=== PATIENT | female | born 1965 ===

== ENCOUNTER 2018-05-09 12:03 | Emergency (ER) | payer BC ==
[2018-05-09 12:09] VITALS: BMI 18.3
[2018-05-09 12:14] VITALS: BP 113/72; PULSE 80; RESP 18; TEMP 98.7; O2SAT 100
[2018-05-09] MEDS ORDERED: Naproxen 550 mg Tab PO STA (13:00)
[2018-05-09] MEDS ORDERED: Naproxen 550 mg Tab PO ONE (13:15)
--- NOTE | 2018-05-09 13:41 | C.PDOC ---
History Of Present Illness 53 y/o female presents to the ER complaining of left knee pain which has been present for the past 2-3 weeks becoming gradually worse over the past 3 days. Patient states that the pain is worse with rocking. Patient denies having falls, trauma, weakness, and numbness. Time Seen by Provider: 05/09/18 12:29 Chief Complaint (Nursing): Lower Extremity Problem/Injury History Per: Patient History/Exam Limitations: no limitations Onset/Duration Of Symptoms: Days Current Symptoms Are (Timing): Still Present Severity: Moderate Past Medical History Reviewed: Historical Data, Nursing Documentation, Vital Signs Vital Signs: Last Vital Signs Temp 98.7 F 05/09/18 12:09 Pulse 80 05/09/18 12:09 Resp 18 05/09/18 12:09 BP 113/72 05/09/18 12:09 Pulse Ox 100 05/09/18 12:09 - Medical History PMH: Anemia, Seizures Other Surgeries: Hx of surgeries Family History: States: No Known Family Hx - Social History Hx Tobacco Use: No Hx Alcohol Use: No Hx Substance Use: No - Immunization History Hx Tetanus Toxoid Vaccination: No Hx Influenza Vaccination: No Hx Pneumococcal Vaccination: No Review Of Systems Except As Marked, All Systems Reviewed And Found Negative. Musculoskeletal: Positive for: Other (left knee pain) Neurological: Negative for: Weakness, Numbness Physical Exam - Physical Exam Appears: Non-toxic, No Acute Distress Skin: Normal Color, Warm, Dry, No Rash Head: Atraumatic, Normacephalic Eye(s): bilateral: Normal Inspection Nose: Normal Oral Mucosa: Moist Neck: Normal ROM, Supple Chest: Symmetrical Extremity: Normal ROM, No Tenderness, Swelling (mild swelling to anterior medial aspect of left knee) Neurological/Psych: Oriented x3, Normal Speech Gait: Steady ED Course And Treatment O2 Sat by Pulse Oximetry: 100 (RA) Pulse Ox Interpretation: Normal Medical Decision Making Medical Decision Making: Plan: --Naproxen PO --X-Ray-Left Knee Updates: X-Ray-Left Knee is negative for fracture or dislocation. Disposition - Disposition Referrals: Nicky Mortensen MD [Staff Provider] - Disposition: HOME/ ROUTINE Disposition Time: 14:11 Condition: STABLE Additional Instructions: Follow up with the medical doctor within 1-2 days, Return if worsened. 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 - Scribe Statement The provider has reviewed the documentation as recorded by the Scribe Bryant Nova Provider Attestation All medical record entries made by the Georgeibe were at my direction and personally dictated by me. I have reviewed the chart and agree that the record accurately reflects my personal performance of the history, physical exam, medical decision making, and the department course for this patient. I have also personally directed, reviewed, and agree with the discharge instructions and disposition.
--- NOTE | 2018-05-09 13:43 | RAD ---
Date of service: 05/09/2018 PROCEDURE: Left Knee Radiographs. HISTORY: Pain. No history of recent/ related trauma provided. Swelling. COMPARISON: None. FINDINGS: BONES: Normal. No fracture. JOINTS: Normal. No osteoarthritis. JOINT EFFUSION: None. OTHER FINDINGS: None. IMPRESSION: Normal radiographs of the left knee. Concordant results with the preliminary interpretation rendered by the emergency department physician procedure.
== END 2018-05-09 14:32 | disposition home or self-care (01) ==
LOC: C.ER 12:03
DX: M25.562 Pain in left knee (principal)

== ENCOUNTER 2018-08-25 12:10 | Outpatient (CLI) | payer BC | END 2018-08-25 12:11 | disposition home or self-care (01) | LOC: C.RADIC 12:10 ==

== ENCOUNTER 2018-12-09 12:17 | Inpatient (IN) | payer BC ==
[2018-12-09 12:18] VITALS: BMI 18.3
--- NOTE | 2018-12-09 13:02 | C.PDOC ---
History Of Present Illness 53 year old female with a history of seizures presents to the emergency department with complaints of right-sided scapula pain worse with inspiration. Patient states that she was drinking milk this morning and coughed, after which she began having the pain with breathing. Patient states that she took Advil for the pain which provided no relief. Patient denies history of asthma, HTN, and diabetes. <Shnaae Duval - Last Filed: 12/09/18 15:26> <Santos Rod - Last Filed: 12/09/18 15:13> History Per: Patient History/Exam Limitations: no limitations Onset/Duration Of Symptoms: Hrs Current Symptoms Are (Timing): Still Present Quality Of Discomfort: "Pain" Previous Symptoms: None Associated Symptoms: None Exacerbating Factor(s): Other (breathing) <Shanae Duval - Last Filed: 12/09/18 15:26> Chief Complaint (Nursing): Cough, Cold, Congestion Past Medical History Vital Signs: Last Vital Signs Temp 98.3 F 12/09/18 12:21 Pulse 72 12/09/18 14:50 Resp 16 12/09/18 14:50 BP 108/61 12/09/18 14:50 Pulse Ox 100 12/09/18 14:50 <Santos Rod - Last Filed: 12/09/18 15:13> Reviewed: Historical Data, Nursing Documentation, Vital Signs Vital Signs: Last Vital Signs Temp 98.3 F 12/09/18 12:21 Pulse 63 12/09/18 12:21 Resp 18 12/09/18 12:21 BP 128/76 12/09/18 12:21 Pulse Ox 100 12/09/18 12:21 Primary Care Provider: Rocael Easley - Medical History PMH: Anemia, Seizures Surgical History: No Surg Hx Family History: States: No Known Family Hx - Social History Hx Tobacco Use: No Hx Alcohol Use: No Hx Substance Use: No - Immunization History Hx Tetanus Toxoid Vaccination: No Hx Influenza Vaccination: No Hx Pneumococcal Vaccination: No <SiminEricamanda - Last Filed: 12/09/18 15:26> Review Of Systems Constitutional: Negative for: Fever, Chills, Weakness Cardiovascular: Negative for: Chest Pain Respiratory: Negative for: Cough, Shortness of Breath Musculoskeletal: Positive for: Back Pain (right-sided) Neurological: Negative for: Weakness, Numbness <Shanae Duval - Last Filed: 12/09/18 15:26> Physical Exam - Physical Exam Appears: Non-toxic, No Acute Distress Skin: Normal Color, Warm, Dry Head: Atraumatic, Normacephalic Eye(s): bilateral: Normal Inspection, PERRL Ear(s): Bilateral: Normal Nose: No Discharge Oral Mucosa: Moist Tongue: Normal Appearing Lips: Normal Appearing Throat: Normal, No Erythema, No Exudate Neck: Normal, Supple Chest: Symmetrical, No Tenderness Cardiovascular: Rhythm Regular, No Murmur Respiratory: No Rales, No Rhonchi, No Wheezing Gastrointestinal/Abdominal: Soft, No Tenderness, No Guarding, No Rebound Back: Normal Inspection, No CVA Tenderness, No Vertebral Tenderness, No Decreased ROM, No Muscle Spasm, No Paraspinal Tenderness Extremity: Normal ROM Extremity: Bilateral: Atraumatic Neurological/Psych: Oriented x3, Normal Speech, Normal Cognition, Normal Motor, Normal Sensation <Shanae Duval - Last Filed: 12/09/18 15:26> ED Course And Treatment - Laboratory Results Result Diagrams: 12/09/18 13:02 12/09/18 13:02 Lab Results: PT 13.1 SECONDS (9.7-12.2) H 12/09/18 13:02 INR 1.2 12/09/18 13:02 APTT 35.3 SECONDS (21-34) H 12/09/18 13:02 D-Dimer, Quantitative < 200 ng/mlDDU (0-243) 12/09/18 13:02 Troponin I < 0.0120 ng/mL (0.00-0.120) 12/09/18 13:02 NT-Pro-B Natriuret Pep 131 pg/mL (0-900) 12/09/18 13:02 Total Bilirubin 0.5 mg/dL (0.2-1.3) 12/09/18 13:02 AST 40 U/L (14-36) H 12/09/18 13:02 ALT 23 U/L (9-52) 12/09/18 13:02 Alkaline Phosphatase 73 U/L (38-126) 12/09/18 13:02 Total Protein 7.7 g/dL (6.3-8.3) 12/09/18 13:02 Albumin 4.6 g/dL (3.5-5.0) 12/09/18 13:02 Globulin 3.1 gm/dL (2.2-3.9) 12/09/18 13:02 Albumin/Globulin Ratio 1.5 (1.0-2.1) 12/09/18 13:02 <Santos Rod - Last Filed: 12/09/18 15:13> - Laboratory Results Result Diagrams: 12/09/18 13:02 12/09/18 13:02 ECG: Interpreted By Me ECG Rhythm: Sinus Rhythm ECG Interpretation: No Acute Changes Rate From EC O2 Sat by Pulse Oximetry: 100 (RA) Pulse Ox Interpretation: Normal - Other Rad CXR X-Ray: Viewed By Me, Read By Radiologist Interpretation: Date of service: 12/09/2018. HISTORY: SOB. COMPARISON: Chest x-ray 11/15/2015. TECHNIQUE: Chest PA and lateral. FINDINGS: LUNGS: No focal consolidation is seen. PLEURA: No pleural effusion is identified. Small to moderate size right pneumothorax. CARDIOVASCULAR: Heart size is within normal limits. Atherosclerotic calcifications noted of the aorta. OSSEOUS STRUCTURES: No acute fracture identified. VISUALIZED UPPER ABDOMEN: Unremarkable. OTHER FINDINGS: Battery pack the overlying the left lateral jhonny thorax and metallic lead seen extending towards the left lung apex.. IMPRESSION: Small to moderate size right pneumothorax. Findings discussed with Shanae Duval, ordering clinician, of the emergency department at 1:18 p.m. on 12/09/2018. <Shanae Duval - Last Filed: 12/09/18 15:26> Medical Decision Making Medical Decision Making: Patient signed over to me at 2pm, complained of SOB. CXR done in FT by PA, showed small right sided pneumothorax Discussed with surgery, pending further evaluation. PE: Thin frail [place] female, lungs clear to auscultation bilaterally. <Santos Rod - Last Filed: 12/09/18 15:13> Medical Decision Making: Plan: EKG -no acute changes Chemistry Hematology CXR Patient verbalizes understanding and is in agreement with plan. Patient started on 15L non-rebreather oxygen. technical operations vice president paged at 13:29. 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 - Scribe Statement The provider has reviewed the documentation as recorded by the Scribe (Laureano Lynch) All medical record entries made by the Scribe were at my direction and personally dictated by me. I have reviewed the chart and agree that the record accurately reflects my personal performance of the history, physical exam, medical decision making, and the department course for this patient. I have also personally directed, reviewed, and agree with the discharge instructions and disposition. <Shanae Duval - Last Filed: 12/09/18 15:26> Decision To Admit - Pt Status Changed To: Hospital Disposition Of: Inpatient - Admit Certification Admit to Inpatient:: After my assessment, the patient will require hospitalization for at least two midnights. This is because of the severity of symptoms shown, intensity of services needed, and/or the medical risk in this patient being treated as an outpatient. - InPatient: Physician Admission Certification:: right sided pneumothorax for possible chest tube or pigtail - . Bed Request Type: Telemetry <Shanae Duval - Last Filed: 12/09/18 15:26> - . Patient Diagnosis: SOB (shortness of breath), Pneumothorax on right
[2018-12-09 13:06] LABS: MEAN CORPUSCULAR HEMOGLOBIN 19.9 pg (27.0-31.0); MEAN CORPUSCULAR HGB CONC 32.3 g/dL (33.0-37.0); MEAN PLATELET VOLUME 9.3 fL (7.2-11.7); RBC 5.56 Mil/uL (3.80-5.20); RED CELL DISTRIBUTION WIDTH 17.3 % (11.5-14.5); WHITE BLOOD COUNT 7.4 K/uL (4.8-10.8)
[2018-12-09 13:14] LABS: MEAN CELL VOLUME 61.6 fL (81.0-99.0)
[2018-12-09 13:22] LABS: ALB/GLOB RATIO 1.5 (1.0-2.1); ALBUMIN 4.6 g/dL (3.5-5.0); ALT/SGPT 23 U/L (9-52); AST/SGOT 40 U/L (14-36); BLOOD UREA NITROGEN 9 mg/dL (7-17); CALCIUM 9.4 mg/dl (8.6-10.4); GFR NON-AFRICAN AMERICAN > 60
--- NOTE | 2018-12-09 13:22 | RAD ---
Date of service: 12/09/2018 HISTORY: SOB COMPARISON: Chest x-ray 11/15/2015 TECHNIQUE: Chest PA and lateral FINDINGS: LUNGS: No focal consolidation is seen. PLEURA: No pleural effusion is identified. Small to moderate size right pneumothorax. CARDIOVASCULAR: Heart size is within normal limits. Atherosclerotic calcifications noted of the aorta. OSSEOUS STRUCTURES: No acute fracture identified. VISUALIZED UPPER ABDOMEN: Unremarkable. OTHER FINDINGS: Battery pack the overlying the left lateral jhonny thorax and metallic lead seen extending towards the left lung apex.. IMPRESSION: Small to moderate size right pneumothorax. Findings discussed with Shanae Duval, ordering clinician, of the emergency department at 1:18 p.m. on 12/09/2018.
[2018-12-09 13:32] LABS: B-TYPE NATRIURETIC PEPTIDE 131 pg/mL (0-900)
[2018-12-09 13:34] LABS: D DIMER < 200 ng/mlDDU (0-243); INR 1.2; PARTIAL THROMBOPLASTIN TIME 35.3 SECONDS (21-34); PROTHROMBIN TIME 13.1 SECONDS (9.7-12.2)
[2018-12-09 13:46] LABS: BASO # 0.1 K/uL (0.0-0.2); EOS # 0.1 K/uL (0.0-0.7); LYMPH # 1.6 K/uL (1.0-4.3); MONO # 0.4 K/uL (0.0-0.8); NEUT # 5.3 K/uL (1.8-7.0)
--- NOTE | 2018-12-09 14:32 | CP.PCM.CON ---
<Geoff Carter - Last Filed: 12/09/18 16:20> History of Present Illness - History of Present Illness History of Present Illness: Surgery Consult Note for Dr. Shi Consult: Pneumothorax HPI: 53 year old female, past medical history significant for seizures s/p VNS and rheumatoid arthritis, who presents to [facility] with right back/shoulder pain that began this morning. Patient states she woke up today with a bout of coughing and began to feel pain in her back/shoulder. Her brought her to the emergency department where x-ray imaging confirmed the presence of a small to moderate sized pneumothorax, approx 22%. Patient denies difficulty breathing or shortness of breath. Denies palpitations, dizziness. ROS otherwise negative except as stated above. PMH: See above PSH: VNS placement FH: Noncontributory SH: Denies tobacco, alcohol, drugs ALL: NKDA Meds: See MAR Review of Systems - Constitutional Constitutional: absent: Chills, Fever, Weight Loss, Weakness - EENT Eyes: absent: Blurred Vision, Change in Vision Nose/Mouth/Throat: absent: Nasal Congestion, Nasal Discharge - Cardiovascular Cardiovascular: absent: Chest Pain, Dyspnea, Dyspnea on Exertion, Palpitations - Respiratory Respiratory: Cough. absent: Dyspnea, Dyspnea on Exertion, Wheezing, Pain on Ins piration, Chest Congestion, Pain with Coughing - Gastrointestinal Gastrointestinal: absent: Abdominal Pain, Belching, Bloating, Nausea, Vomiting - Genitourinary Genitourinary: absent: Difficulty Urinating, Dysuria - Musculoskeletal Musculoskeletal: absent: Back Pain, Neck Pain - Integumentary Integumentary: absent: Dry Skin, New Lesions - Neurological Neurological: absent: Confusion, Dizziness - Psychiatric Psychiatric: absent: Anxiety, Depression Past Patient History - Past Social History Smoking Status: Never Smoked - NEUROLOGICAL Hx Seizures: Yes - HEMATOLOGICAL/ONCOLOGICAL Hx Anemia: Yes - PSYCHIATRIC Hx Substance Use: No - SURGICAL HISTORY Hx Surgeries: Yes Other/Comment: VNS Meds Allergies/Adverse Reactions: Allergies Allergy/AdvReac Type Severity Reaction Status Date / Time No Known Allergies Allergy Verified 05/09/18 12:20 Physical Exam - Constitutional Appears: Well, Non-toxic, No Acute Distress - Head Exam Head Exam: ATRAUMATIC, NORMAL INSPECTION, NORMOCEPHALIC - Eye Exam Eye Exam: EOMI Pupil Exam: PERRL - ENT Exam ENT Exam: Mucous Membranes Moist - Respiratory Exam Respiratory Exam: absent: Accessory Muscle Use, Chest Wall Tenderness, Wheezes, Respiratory Distress - Cardiovascular Exam Cardiovascular Exam: REGULAR RHYTHM. absent: Tachycardia - GI/Abdominal Exam GI & Abdominal Exam: Normal Bowel Sounds, Soft. absent: Tenderness - Extremities Exam Extremities exam: Positive for: normal inspection, pedal pulses present - Neurological Exam Neurological exam: Alert, Oriented x3 - Psychiatric Exam Psychiatric exam: Normal Affect, Normal Mood - Skin Skin Exam: Dry, Intact, Normal Color, Warm Results - Vital Signs Recent Vital Signs: Last Vital Signs Temp 98.3 F 12/09/18 12:21 Pulse 77 12/09/18 14:00 Resp 14 12/09/18 14:00 BP 116/78 12/09/18 14:00 Pulse Ox 100 12/09/18 14:20 - Labs Result Diagrams: 12/09/18 13:02 12/09/18 13:02 Labs: Laboratory Results - last 24 hr 12/09/18 12/09/18 12/09/18 13:02 13:02 13:02 WBC 7.4 RBC 5.56 H Hgb 11.0 Hct 34.2 MCV 61.6 L D MCH 19.9 L MCHC 32.3 L RDW 17.3 H Plt Count 275 MPV 9.3 Neut % (Auto) 72.0 Lymph % (Auto) 21.0 [place] % (Auto) 5.0 Eos % (Auto) 1.0 Baso % (Auto) 1.0 Neut # (Auto) 5.3 Lymph # (Auto) 1.6 [place] # (Auto) 0.4 Eos # (Auto) 0.1 Baso # (Auto) 0.1 PT 13.1 H INR 1.2 APTT 35.3 H D-Dimer, Quantitative < 200 Sodium 138 Potassium 4.1 Chloride 101 Carbon Dioxide 27 Anion Gap 14 BUN 9 Creatinine 0.6 L Est GFR ( Amer) > 60 Est GFR (Non-Af Amer) > 60 Random Glucose 84 Calcium 9.4 Total Bilirubin 0.5 AST 40 H ALT 23 Alkaline Phosphatase 73 Troponin I < 0.0120 NT-Pro-B Natriuret Pep 131 Total Protein 7.7 Albumin 4.6 Globulin 3.1 Albumin/Globulin Ratio 1.5 Assessment & Plan - Assessment and Plan (Free Text) Assessment: 53F w/ small/moderate pneumothorax Plan: Measuring approximately 22% FU CT Chest w/ contrast Patient may need pigtail catheter vs chest tube Continue to monitor respiratory status Remain on NC Currently hemodynamically stable Will continue to monitor Further recs per Dr. Yuridia Carter PGY1 <Juan Carlos Shi - Last Filed: 12/13/18 12:52> Meds - Medications Medications: Current Medications Acetaminophen (Tylenol 325mg Tab) 650 mg PO Q6H PRN PRN Reason: Pain, Mild (1-3) Albuterol/Ipratropium (Duoneb 3 Mg/0.5 Mg (3 Ml) Ud) 3 ml INH RQ6 [facility] Last Admin: 12/13/18 08:16 Dose: Not Given Cyclobenzaprine HCl (Flexeril) 5 mg PO Q8H [facility] Last Admin: 12/13/18 10:50 Dose: 5 mg Hydromorphone HCl (Dilaudid) 0.5 mg IVP Q3H PRN PRN Reason: Pain, severe (8-10) Last Admin: 12/11/18 01:04 Dose: 0.5 mg Lactulose (Enulose) 20 gm PO BID [facility] Last Admin: 12/13/18 10:50 Dose: 20 gm Lamotrigine (Lamictal) 150 mg PO BID [facility] Last Admin: 12/13/18 10:52 Dose: 150 mg Oxcarbazepine (Trileptal) 300 mg PO BID [facility] Last Admin: 12/13/18 10:58 Dose: 300 mg Oxycodone HCl (Oxycodone Immediate Release Tab) 5 mg PO Q6 PRN PRN Reason: Pain, moderate (4-7) Last Admin: 12/12/18 18:19 Dose: 5 mg Results - Vital Signs Recent Vital Signs: Last Vital Signs Temp 98.0 F 12/13/18 07:05 Pulse 85 12/13/18 07:35 Resp 20 12/13/18 07:05 BP 110/69 12/13/18 07:05 Pulse Ox 94 L 12/13/18 07:05 - Labs Result Diagrams: 12/09/18 13:02 12/09/18 13:02 Labs: Laboratory Results - last 24 hr 12/13/18 11:18 POC Glucose (mg/dL) 112 H Addendum Addendum: 12/13/18 12:46 The pt is 53 yo female with hx rheumatoid disesase who presented to ER with a sudden ondet of right sided chest pain after severe coughs. I have reviewed labs and chest xary, and discussed treatment plan with Dr. Geoff Kelly as outined in the progress note. A further intention will be predicarted on ct findings.
[2018-12-09] MEDS ORDERED: Iodixanol 320 MG/ML 100 ML BOTTLE IV ONE (16:48)
[2018-12-09] MEDS ORDERED: Bupivacaine 0.5% Inj(30mL) INJ ONE (18:30)
--- NOTE | 2018-12-09 18:48 | CT ---
Date of service: 12/09/2018 PROCEDURE: CT Chest with contrast HISTORY: PTX COMPARISON: Comparison is made with the previous same-day chest x-ray. No prior CT of the chest available for comparison TECHNIQUE: Contiguous axial images were obtained through the chest with intravenous contrast enhancement. Sagittal and coronal reconstructions were performed. IV contrast: 100 mL of Visipaque 320 intravenously. Radiation dose: Total exam DLP = 181.07 mGy-cm. This CT exam was performed using one or more of the following dose reduction techniques: Automated exposure control, adjustment of the mA and/or kV according to patient size, and/or use of iterative reconstruction technique. FINDINGS: LUNGS: Partial collapse of the right lung lower lobe due to right-sided pneumothorax. There is also partial collapse of the right middle lobe. Moderate emphysematous changes are noted. No definite evidence of discrete mass lesion. MEDIASTINUM: Unremarkable thoracic aorta. No aneurysm or dissection. Normal sized heart. Main pulmonary artery unremarkable. No vascular congestion. No lymphadenopathy. No aortic atherosclerotic calcification or mural plaque present. PLEURA: There is approximately 30-35 percent right-sided pneumothorax. There is no evidence of pleural effusion. BONES: No fracture. No destructive lesion. UPPER ABDOMEN: Grossly unremarkable. OTHER FINDINGS: None. IMPRESSION: Moderate size approximately 30-40 percent right-sided pneumothorax. Partial collapse of the right lower lobe and right middle lobe. [id number] emphysematous changes. The above findings were reported to and discussed with the nurse taking care of the patient in the [facility] [address] [facility]
--- NOTE | 2018-12-09 19:26 | CP.PCM.HP ---
Past Patient History - Past Social History Smoking Status: Never Smoked - NEUROLOGICAL Hx Seizures: Yes - HEMATOLOGICAL/ONCOLOGICAL Hx Anemia: Yes - PSYCHIATRIC Hx Substance Use: No - SURGICAL HISTORY Hx Surgeries: Yes Other/Comment: VNS - ANESTHESIA Hx Anesthesia: No Hx Anesthesia Reactions: No Hx Malignant Hyperthermia: No Has any member of the family had a problem w/ anesthesia?: No Meds Allergies/Adverse Reactions: Allergies Allergy/AdvReac Type Severity Reaction Status Date / Time No Known Allergies Allergy Verified 05/09/18 12:20 Physical Exam - Constitutional Appears: Well - Head Exam Head Exam: ATRAUMATIC, NORMAL INSPECTION, NORMOCEPHALIC - Eye Exam Eye Exam: EOMI, Normal appearance, PERRL Pupil Exam: NORMAL ACCOMODATION, PERRL - ENT Exam ENT Exam: Mucous Membranes Moist, Normal Exam - Neck Exam Neck exam: Positive for: Normal Inspection - Respiratory Exam Respiratory Exam: Decreased Breath Sounds - Cardiovascular Exam Cardiovascular Exam: REGULAR RHYTHM, +S1, +S2 - GI/Abdominal Exam GI & Abdominal Exam: Diminished Bowel Sounds, Soft - Rectal Exam Rectal Exam: Deferred - Neurological Exam Neurological exam: Oriented x3 Results - Vital Signs Recent Vital Signs: Last Vital Signs Temp 97.4 F L 12/09/18 17:30 Pulse 67 12/09/18 17:30 Resp 18 12/09/18 17:30 BP 132/75 12/09/18 17:30 Pulse Ox 97 12/09/18 17:30 - Labs Result Diagrams: 12/09/18 13:02 12/09/18 13:02 Labs: Laboratory Results - last 24 hr 12/09/18 12/09/18 12/09/18 13:02 13:02 13:02 WBC 7.4 RBC 5.56 H Hgb 11.0 Hct 34.2 MCV 61.6 L D MCH 19.9 L MCHC 32.3 L RDW 17.3 H Plt Count 275 MPV 9.3 Neut % (Auto) 72.0 Lymph % (Auto) 21.0 [place] % (Auto) 5.0 Eos % (Auto) 1.0 Baso % (Auto) 1.0 Neut # (Auto) 5.3 Lymph # (Auto) 1.6 [place] # (Auto) 0.4 Eos # (Auto) 0.1 Baso # (Auto) 0.1 PT 13.1 H INR 1.2 APTT 35.3 H D-Dimer, Quantitative < 200 Sodium 138 Potassium 4.1 Chloride 101 Carbon Dioxide 27 Anion Gap 14 BUN 9 Creatinine 0.6 L Est GFR ( Amer) > 60 Est GFR (Non-Af Amer) > 60 Random Glucose 84 Calcium 9.4 Total Bilirubin 0.5 AST 40 H ALT 23 Alkaline Phosphatase 73 Troponin I < 0.0120 NT-Pro-B Natriuret Pep 131 Total Protein 7.7 Albumin 4.6 Globulin 3.1 Albumin/Globulin Ratio 1.5
[2018-12-09] MEDS: HYDROmorphone 0.5 mg/0.5 ml ISec IVP PRN (19:55)
[2018-12-09] MEDS ORDERED: HYDROmorphone 0.5 mg/0.5 ml ISec ONE (19:58)
[2018-12-09] MEDS: Azithromycin 500mg/250ML NS 500 MG/250 ML BAG IVPB SCH (21:45)
--- NOTE | 2018-12-09 23:41 | PCM.PROC ---
<Geoff Carter - Last Filed: 12/09/18 23:37> Procedures Attestation:: I certify that I have explained the specified Operation(s) or Procedure(s), risks, benefits and reasonable alternatives to the Patient and/or other person responsible. The opportunity was given to ask questions and all questions answered - Chest Tube Chest Tube Location: Mid-Axillary Right Size of Tube (cm): 24 (Fr) Chest Tube Procedure: Chlorhexidine Tube Sutured to Skin: Yes Sterile Dressing Applied: Yes Anesthesia: Lidocaine 1% Volume Anesthetic (mls): 10 Incision Made With: #11 blade Post Procedure: sutured to skin, sterile dressing applied, air occlusive dressing [place] of Air [place]: Yes Tube Drainage: blood Amount of Initial Drainage: 5 Post Procedure CXR?: Yes Patient Tolerated Procedure: Yes Complications: tube needs to be repositioned Progress: 53 year old female presented to the ED with right back/shoulder pain. Xray showed right sided pneumothorax. Chest CT was ordered which confirmed pneumothorax of approximately 30-40%. Tube thoracostomy indicated at this time. Patient consented to procedure with nurse as witness. All questions and concerns addressed. Time out was performed. Chest tube was placed at beside. Patient tolerated procedure. Post-procedure xray showed tube too far advanced which was then adjusted. Repeat chest xray showed chest tube in appropriate position. Patient verbalized and acknowledged treatment plan. All aspects of care rendered to attending, Dr. Shi, who was in agreement of procedure. <Juan Carlos Shi - Last Filed: 12/13/18 12:55> Addendum Addendum: 12/13/18 12:53 I concur with a tube thoracostomy based on ct findings(40% Pneumothorax right)
[2018-12-10] MEDS: Albuterol-Ipratrop 3 mg / 0.5 (3 ml) UD INH SCH ×4 (01:20→19:22)
[2018-12-10] MEDS: HYDROmorphone 0.5 mg/0.5 ml ISec IVP PRN ×3 (06:11→17:51)
--- NOTE | 2018-12-10 08:01 | CP.PCM.PN ---
<EmmaGeoff - Last Filed: 12/10/18 07:58> Subjective - Date & Time of Evaluation Date of Evaluation: 12/10/18 Time of Evaluation: 07:58 - Subjective Subjective: Surgery Progress Note for Dr. Shi 53F seen and evaluated at bedside this morning. No acute events overnight. Chest tube in place, no output, no air leak. Pending CT Chest this morning. Pain controlled. Tolerated diet. Denies f/c, n/v/d, SOB, CP, or urinary symptoms. Objective - Vital Signs/Intake and Output Vital Signs (last 24 hours): Temp Pulse Resp BP Pulse Ox 97.9 F 71 18 100/58 L 100 12/10/18 07:00 12/10/18 07:00 12/10/18 07:00 12/10/18 07:00 12/10/18 07:00 - Medications Medications: Current Medications Acetaminophen (Tylenol 325mg Tab) 650 mg PO Q6H [facility] Last Admin: 12/09/18 21:46 Dose: 650 mg Albuterol/Ipratropium (Duoneb 3 Mg/0.5 Mg (3 Ml) Ud) 3 ml INH RQ6 [facility] Last Admin: 12/10/18 01:20 Dose: 3 ml Cyclobenzaprine HCl (Flexeril) 5 mg PO Q8H [facility] Last Admin: 12/10/18 04:10 Dose: 5 mg Hydromorphone HCl (Dilaudid) 0.5 mg IVP Q3H PRN PRN Reason: Pain, severe (8-10) Last Admin: 12/10/18 06:11 Dose: 0.5 mg Azithromycin (Zithromax 500mg In Ns Addvantage) 500 mg in 250 mls @ 167 mls/hr IVPB Q24H [facility]; Protocol Last Admin: 12/09/18 21:45 Dose: 167 mls/hr Lamotrigine (Lamictal) 150 mg PO BID [facility] Last Admin: 12/09/18 21:46 Dose: 150 mg Oxcarbazepine (Trileptal) 300 mg PO BID [facility] Last Admin: 12/09/18 20:29 Dose: 300 mg Oxycodone HCl (Oxycodone Immediate Release Tab) 5 mg PO Q6 PRN PRN Reason: Pain, moderate (4-7) - Labs Labs: 12/09/18 13:02 12/09/18 13:02 PT 13.1 SECONDS (9.7-12.2) H 12/09/18 13:02 INR 1.2 12/09/18 13:02 APTT 35.3 SECONDS (21-34) H 12/09/18 13:02 - Constitutional Appears: Well, Non-toxic, No Acute Distress - Head Exam Head Exam: ATRAUMATIC, NORMAL INSPECTION, NORMOCEPHALIC - Eye Exam Eye Exam: EOMI Pupil Exam: PERRL - ENT Exam ENT Exam: Mucous Membranes Moist - Respiratory Exam Respiratory Exam: Chest Wall Tenderness, NORMAL BREATHING PATTERN. absent: Accessory Muscle Use, Decreased Breath Sounds, Wheezes, Respiratory Distress Additional comments: right anterior mid-axillary chest tube - no significant output, dressing c/d/i - Cardiovascular Exam Cardiovascular Exam: REGULAR RHYTHM, +S1, +S2. absent: Murmur - GI/Abdominal Exam GI & Abdominal Exam: Soft, Normal Bowel Sounds. absent: Tenderness - Neurological Exam Neurological Exam: Alert, Awake, Oriented x3 - Psychiatric Exam Psychiatric exam: Normal Affect, Normal Mood - Skin Skin Exam: Dry, Intact, Normal Color, Warm Assessment and Plan - Assessment and Plan (Free Text) Assessment: 53F w/ right sided pneumothorax s/p tube thoracostomy at bedside with near resolution of PTX Plan: Pending CT Chest this morning Continue CT wall suction - 100mmHg, continuous Monitor chest tube output Monitor for air leaks Pain control PRN Regular diet as tolerated Monitor respiratory status Further recs per Dr. Yuridia Carter PGY1 <Juan Carlos Shi - Last Filed: 12/13/18 13:00> Objective - Vital Signs/Intake and Output Vital Signs (last 24 hours): Temp Pulse Resp BP Pulse Ox 98.0 F 85 20 110/69 94 L 12/13/18 07:05 12/13/18 07:35 12/13/18 07:05 12/13/18 07:05 12/13/18 07:05 Intake and Output: 12/13/18 12/13/18 06:59 18:59 Intake Total 240 Output Total 0 Balance 240 - Medications Medications: Current Medications Acetaminophen (Tylenol 325mg Tab) 650 mg PO Q6H PRN PRN Reason: Pain, Mild (1-3) Albuterol/Ipratropium (Duoneb 3 Mg/0.5 Mg (3 Ml) Ud) 3 ml INH RQ6 [facility]S [facility] BEDS AT [facility] Last Admin: 12/13/18 08:16 Dose: Not Given Cyclobenzaprine HCl (Flexeril) 5 mg PO Q8H COUNTS INCLUDE 234 BEDS AT THE [facility] Last Admin: 12/13/18 10:50 Dose: 5 mg Hydromorphone HCl (Dilaudid) 0.5 mg IVP Q3H PRN PRN Reason: Pain, severe (8-10) Last Admin: 12/11/18 01:04 Dose: 0.5 mg Lactulose (Enulose) 20 gm PO BID COUNTS [facility]CLUDE 234 BEDS AT [facility] Last Admin: 12/13/18 10:50 Dose: 20 gm Lamotrigine (Lamictal) 150 mg PO BID COUNTS [facility]CLUDE 234 BEDS AT [facility] Last Admin: 12/13/18 10:52 Dose: 150 mg Oxcarbazepine (Trileptal) 300 mg PO BID [facility] 234 BEDS AT [facility] Last Admin: 12/13/18 10:58 Dose: 300 mg Oxycodone HCl (Oxycodone Immediate Release Tab) 5 mg PO Q6 PRN PRN Reason: Pain, moderate (4-7) Last Admin: 12/12/18 18:19 Dose: 5 mg - Labs Labs: 12/09/18 13:02 12/09/18 13:02 PT 13.1 SECONDS (9.7-12.2) H 12/09/18 13:02 INR 1.2 12/09/18 13:02 APTT 35.3 SECONDS (21-34) H 12/09/18 13:02 Addendum Addendum: 12/13/18 12:59 ct this am shows=5% basilar pneumothrax. Contineu chest tube to suction.
--- NOTE | 2018-12-10 14:27 | CT ---
Date of service: 12/10/2018 PROCEDURE: CT Chest without contrast HISTORY: PTX COMPARISON: Comparison is made to the previous study dated 12/09/2018 TECHNIQUE: Contiguous axial images were obtained through the chest without intravenous contrast enhancement. Sagittal and coronal reconstructions were performed. Radiation dose: Total exam DLP = 155.37 mGy-cm. This CT exam was performed using one or more of the following dose reduction techniques: Automated exposure control, adjustment of the mA and/or kV according to patient size, and/or use of iterative reconstruction technique. FINDINGS: LUNGS: Interval insertion of right-sided chest tube and almost complete resolving of the previously seen right pneumothorax. There re-expansion of the right middle lobe and right lower lobe. There is persistent focal consolidation at the right middle lobe associated with bronchiectasis suggestive of right middle lobe syndrome. Emphysematous changes of the lungs is again noted. Partial atelectasis of the right lower lobe is noted. The small opacities at the left lung base with also likely represent atelectasis. MEDIASTINUM: Unremarkable thoracic aorta. No aneurysm. Normal sized heart. The main pulmonary artery is mildly enlarged. No evidence of significant interval change in the mediastinum. Dilated esophagus contains fluid and air-fluid level is noted. Small atherosclerotic calcification noted. PLEURA: Small approximately 5 percent pneumothorax noted in the right lower chest. There is trace/small right pleural effusion and trace left pleural effusion. BONES: No fracture. No destructive lesion. UPPER ABDOMEN: Grossly unremarkable. OTHER FINDINGS: None. IMPRESSION: Interval insertion of right sided chest tube. Residual 5 percent right-sided pneumothorax is noted. Small airspace consolidation at the right middle lobe associated with bronchiectasis suggestive of right middle lobe syndrome secondary to airway stenosis. Mild emphysema. Small right pleural effusion and trace left pleural effusion. Dilated esophagus contains fluid.
--- NOTE | 2018-12-10 15:10 | CP.PCM.CON ---
History of Present Illness - History of Present Illness History of Present Illness: 53 year old female, past medical history significant for seizures s/p VNS and rheumatoid arthritis, who presents to [facility] with right back/shoulder pain that began this morning. Patient states she woke up today with a bout of coughing and began to feel pain in her back/shoulder. Her brought her to the emergency department where x-ray imaging confirmed the presence of a small to moderate sized pneumothorax, approx 22%. Patient denies difficulty breathing or shortness of breath. Denies palpitations, dizziness. ROS otherwise negative except as stated above. Review of Systems - Review of Systems All systems: reviewed and no additional remarkable complaints except (as mentioned in HPI) Past Patient History - Past Social History Smoking Status: Never Smoked - NEUROLOGICAL Hx Seizures: Yes - HEMATOLOGICAL/ONCOLOGICAL Hx Anemia: Yes - MUSCULOSKELETAL/RHEUMATOLOGICAL Hx Falls: No - PSYCHIATRIC Hx Substance Use: No - SURGICAL HISTORY Hx Surgeries: Yes Other/Comment: VNS - ANESTHESIA Hx Anesthesia: No Hx Anesthesia Reactions: No Hx Malignant Hyperthermia: No Has any member of the family had a problem w/ anesthesia?: No Meds Allergies/Adverse Reactions: Allergies Allergy/AdvReac Type Severity Reaction Status Date / Time No Known Allergies Allergy Verified 05/09/18 12:20 - Medications Medications: Current Medications Acetaminophen (Tylenol 325mg Tab) 650 mg PO Q6H PRN PRN Reason: Pain, Mild (1-3) Albuterol/Ipratropium (Duoneb 3 Mg/0.5 Mg (3 Ml) Ud) 3 ml INH RQ6 [facility] Last Admin: 12/10/18 14:18 Dose: 3 ml Cyclobenzaprine HCl (Flexeril) 5 mg PO Q8H JED Last Admin: 12/10/18 11:49 Dose: 5 mg Heparin Sodium (Porcine) (Heparin) 5,000 units SC Q12 [facility]ED Last Admin: 12/10/18 09:51 Dose: 5,000 units Hydromorphone HCl (Dilaudid) 0.5 mg IVP Q3H PRN PRN Reason: Pain, severe (8-10) Last Admin: 12/10/18 09:50 Dose: 0.5 mg Azithromycin (Zithromax 500mg In Ns Addvantage) 500 mg in 250 mls @ 167 mls/hr IVPB Q24H [facility]; Protocol Last Admin: 12/09/18 21:45 Dose: 167 mls/hr Lamotrigine (Lamictal) 150 mg PO BID [facility] Last Admin: 12/10/18 09:51 Dose: 150 mg Oxcarbazepine (Trileptal) 300 mg PO BID [facility] Last Admin: 12/10/18 09:51 Dose: 300 mg Oxycodone HCl (Oxycodone Immediate Release Tab) 5 mg PO Q6 PRN PRN Reason: Pain, moderate (4-7) Physical Exam - Head Exam Head Exam: NORMAL INSPECTION - Eye Exam Eye Exam: Normal appearance - ENT Exam ENT Exam: Mucous Membranes Moist - Respiratory Exam Respiratory Exam: Clear to Auscultation Bilateral - Cardiovascular Exam Cardiovascular Exam: REGULAR RHYTHM - GI/Abdominal Exam GI & Abdominal Exam: Normal Bowel Sounds - Extremities Exam Extremities exam: Positive for: normal inspection Results - Vital Signs Recent Vital Signs: Last Vital Signs Temp 97.9 F 12/10/18 07:00 Pulse 71 12/10/18 07:00 Resp 18 12/10/18 07:00 BP 100/58 L 12/10/18 07:00 Pulse Ox 100 12/10/18 07:00 - Labs Result Diagrams: 12/09/18 13:02 12/09/18 13:02 Assessment & Plan (1) Pneumothorax on right Status: Acute (2) SOB (shortness of breath) Status: Acute - Assessment and Plan (Free Text) Plan: repeat CT shows near complete resolution of PTx Chest tube in place Continue CT to suction Pain control Broncho dilators DVT/GI prophalaxis
[2018-12-10] MEDS: Azithromycin 500mg/250ML NS 500 MG/250 ML BAG IVPB SCH (17:48)
--- NOTE | 2018-12-10 18:42 | RAD ---
Date of service: 12/09/2018 HISTORY: s/p chest tube placement COMPARISON: 12/09/2018 TECHNIQUE: 1 view obtained. FINDINGS: LUNGS: Interval insertion of right-sided chest tube. Otherwise no significant interval change in the lungs PLEURA: Interval decrease in the size of the right-sided pneumothorax with residual small pneumothorax at the lower portion of the right chest. CARDIOVASCULAR: No aortic atherosclerotic calcification present. Normal cardiac size. No pulmonary vascular congestion. OSSEOUS STRUCTURES: No significant abnormalities. VISUALIZED UPPER ABDOMEN: Normal. OTHER FINDINGS: None. IMPRESSION: Interval insertion of right-sided chest tube with interval significant decrease in the size of the right pneumothorax.
--- NOTE | 2018-12-10 20:55 | CP.PCM.PN ---
Subjective - Date & Time of Evaluation Date of Evaluation: 12/10/18 Time of Evaluation: 09:50 - Subjective Subjective: patient examined today no nausea no vomitng no dizziness no diarrhea no fever no shortness of breath Objective - Vital Signs/Intake and Output Vital Signs (last 24 hours): Temp Pulse Resp BP Pulse Ox 99.1 F 86 20 112/63 98 12/10/18 15:41 12/10/18 16:00 12/10/18 15:41 12/10/18 15:41 12/10/18 15:41 Intake and Output: 12/10/18 12/11/18 18:59 06:59 Output Total 2 Balance -2 - Medications Medications: Current Medications Acetaminophen (Tylenol 325mg Tab) 650 mg PO Q6H PRN PRN Reason: Pain, Mild (1-3) Albuterol/Ipratropium (Duoneb 3 Mg/0.5 Mg (3 Ml) Ud) 3 ml INH RQ6 [facility] Last Admin: 12/10/18 19:22 Dose: Not Given Cyclobenzaprine HCl (Flexeril) 5 mg PO Q8H [facility] Last Admin: 12/10/18 18:45 Dose: 5 mg Heparin Sodium (Porcine) (Heparin) 5,000 units SC Q12 [facility] Last Admin: 12/10/18 09:51 Dose: 5,000 units Hydromorphone HCl (Dilaudid) 0.5 mg IVP Q3H PRN PRN Reason: Pain, severe (8-10) Last Admin: 12/10/18 17:51 Dose: 0.5 mg Lamotrigine (Lamictal) 150 mg PO BID [facility] Last Admin: 12/10/18 17:49 Dose: 150 mg Oxcarbazepine (Trileptal) 300 mg PO BID [facility] Last Admin: 12/10/18 17:48 Dose: 300 mg Oxycodone HCl (Oxycodone Immediate Release Tab) 5 mg PO Q6 PRN PRN Reason: Pain, moderate (4-7) - Labs Labs: 12/09/18 13:02 12/09/18 13:02 PT 13.1 SECONDS (9.7-12.2) H 12/09/18 13:02 INR 1.2 12/09/18 13:02 APTT 35.3 SECONDS (21-34) H 12/09/18 13:02 - Constitutional Appears: Well - Head Exam Head Exam: ATRAUMATIC, NORMAL INSPECTION, NORMOCEPHALIC - Eye Exam Eye Exam: EOMI, Normal appearance, PERRL Pupil Exam: NORMAL ACCOMODATION, PERRL - ENT Exam ENT Exam: Mucous Membranes Moist, Normal Exam - Neck Exam Neck Exam: Full ROM, Normal Inspection. absent: Lymphadenopathy - Respiratory Exam Respiratory Exam: Decreased Breath Sounds - Cardiovascular Exam Cardiovascular Exam: REGULAR RHYTHM, +S1, +S2 - GI/Abdominal Exam GI & Abdominal Exam: Soft, Diminished Bowel Sounds - Rectal Exam Rectal Exam: Deferred - Neurological Exam Neurological Exam: Oriented x3 Assessment and Plan - Assessment and Plan (Free Text) Plan: plan discussed with patient moderate complexity of care labs reivewed medications reviewed vitals reviewed dilaudid duoneb flexeril heparin lamictal oxycodone IR trileptal tylenol
[2018-12-11] MEDS: HYDROmorphone 0.5 mg/0.5 ml ISec IVP PRN (01:04)
[2018-12-11] MEDS: Albuterol-Ipratrop 3 mg / 0.5 (3 ml) UD INH SCH ×4 (01:47→19:39)
--- NOTE | 2018-12-11 07:41 | CP.PCM.PN ---
<Jakob Wells - Last Filed: 12/11/18 07:49> Subjective - Date & Time of Evaluation Date of Evaluation: 12/11/18 Time of Evaluation: 07:49 - Subjective Subjective: Surgery Progress Note for Dr. Shi Patient seen and evaluated at bedside this morning. No acute events overnight. Chest tube in place, no output, no air leak. She is still complaining of pain at chest tube site. Tolerating diet. Denies f/c, n/v/d, SOB, CP, or urinary symptoms. Objective - Vital Signs/Intake and Output Vital Signs (last 24 hours): Temp Pulse Resp BP Pulse Ox 98.5 F 81 20 103/64 95 12/10/18 23:30 12/11/18 04:14 12/10/18 23:30 12/10/18 23:30 12/10/18 23:30 Intake and Output: 12/11/18 12/11/18 06:59 18:59 Output Total 954 Balance -954 - Medications Medications: Current Medications Acetaminophen (Tylenol 325mg Tab) 650 mg PO Q6H PRN PRN Reason: Pain, Mild (1-3) Albuterol/Ipratropium (Duoneb 3 Mg/0.5 Mg (3 Ml) Ud) 3 ml INH RQ6 [facility] Last Admin: 12/11/18 01:47 Dose: Not Given Cyclobenzaprine HCl (Flexeril) 5 mg PO Q8H [facility] Last Admin: 12/11/18 04:20 Dose: 5 mg Heparin Sodium (Porcine) (Heparin) 5,000 units SC Q12 [facility] Last Admin: 12/10/18 21:26 Dose: 5,000 units Hydromorphone HCl (Dilaudid) 0.5 mg IVP Q3H PRN PRN Reason: Pain, severe (8-10) Last Admin: 12/11/18 01:04 Dose: 0.5 mg Lamotrigine (Lamictal) 150 mg PO BID [facility] Last Admin: 12/10/18 17:49 Dose: 150 mg Oxcarbazepine (Trileptal) 300 mg PO BID [facility] Last Admin: 12/10/18 17:48 Dose: 300 mg Oxycodone HCl (Oxycodone Immediate Release Tab) 5 mg PO Q6 PRN PRN Reason: Pain, moderate (4-7) - Labs Labs: 12/09/18 13:02 12/09/18 13:02 PT 13.1 SECONDS (9.7-12.2) H 12/09/18 13:02 INR 1.2 12/09/18 13:02 APTT 35.3 SECONDS (21-34) H 12/09/18 13:02 - Additional Findings Additional findings: - Constitutional Appears: Well, Non-toxic, No Acute Distress - Head Exam Head Exam: ATRAUMATIC, NORMAL INSPECTION, NORMOCEPHALIC - Eye Exam Eye Exam: EOMI Pupil Exam: PERRL - ENT Exam ENT Exam: Mucous Membranes Moist - Respiratory Exam Respiratory Exam: Chest Wall Tenderness, NORMAL BREATHING PATTERN. absent: Accessory Muscle Use, Decreased Breath Sounds, Wheezes, Respiratory Distress Additional comments: right mid-axillary chest tube 24 fr 10cm at skin - no significant output or air leak; dressing c/d/i - Cardiovascular Exam Cardiovascular Exam: REGULAR RHYTHM, +S1, +S2. absent: Murmur - GI/Abdominal Exam GI & Abdominal Exam: Soft, Normal Bowel Sounds. absent: Tenderness - Neurological Exam Neurological Exam: Alert, Awake, Oriented x3 - Psychiatric Exam Psychiatric exam: Normal Affect, Normal Mood - Skin Skin Exam: Dry, Intact, Normal Color, Warm Assessment and Plan - Assessment and Plan (Free Text) Assessment: 53F with right sided pneumothorax s/p tube thoracostomy at bedside Plan: Continue wall suction Monitor chest tube output Monitor for air leaks Pain control PRN Regular diet as tolerated Monitor respiratory status f/u CXR Further recs per Dr. Yuridia Wells PGY2 <Juan Carlos Shi - Last Filed: 12/13/18 13:02> Objective - Vital Signs/Intake and Output Vital Signs (last 24 hours): Temp Pulse Resp BP Pulse Ox 98.0 F 85 20 110/69 94 L 12/13/18 07:05 12/13/18 07:35 12/13/18 07:05 12/13/18 07:05 12/13/18 07:05 Intake and Output: 12/13/18 12/13/18 06:59 18:59 Intake Total 240 Output Total 0 Balance 240 - Medications Medications: Current Medications Acetaminophen (Tylenol 325mg Tab) 650 mg PO Q6H PRN PRN Reason: Pain, Mild (1-3) Albuterol/Ipratropium (Duoneb 3 Mg/0.5 Mg (3 Ml) Ud) 3 ml INH RQ6 [facility] Last Admin: 12/13/18 08:16 Dose: Not Given Cyclobenzaprine HCl (Flexeril) 5 mg PO Q8H [facility] Last Admin: 12/13/18 10:50 Dose: 5 mg Hydromorphone HCl (Dilaudid) 0.5 mg IVP Q3H PRN PRN Reason: Pain, severe (8-10) Last Admin: 12/11/18 01:04 Dose: 0.5 mg Lactulose (Enulose) 20 gm PO BID [facility] Last Admin: 12/13/18 10:50 Dose: 20 gm Lamotrigine (Lamictal) 150 mg PO BID [facility] Last Admin: 12/13/18 10:52 Dose: 150 mg Oxcarbazepine (Trileptal) 300 mg PO BID [facility] Last Admin: 12/13/18 10:58 Dose: 300 mg Oxycodone HCl (Oxycodone Immediate Release Tab) 5 mg PO Q6 PRN PRN Reason: Pain, moderate (4-7) Last Admin: 12/12/18 18:19 Dose: 5 mg - Labs Labs: 12/09/18 13:02 12/09/18 13:02 PT 13.1 SECONDS (9.7-12.2) H 12/09/18 13:02 INR 1.2 12/09/18 13:02 APTT 35.3 SECONDS (21-34) H 12/09/18 13:02 Addendum Addendum: 12/13/18 13:01 complete resoltuion of pneumothorax-continue to chest tube suction.
--- NOTE | 2018-12-11 17:07 | CP.PCM.PN ---
Subjective - Date & Time of Evaluation Date of Evaluation: 12/11/18 Time of Evaluation: 09:30 - Subjective Subjective: patient seen today no dizziness, no diarrhea, no fever, no nausea, no vomiting no shortness of breath Objective - Vital Signs/Intake and Output Vital Signs (last 24 hours): Temp Pulse Resp BP Pulse Ox 98.9 F 85 18 118/67 93 L 12/11/18 07:25 12/11/18 16:00 12/11/18 09:09 12/11/18 09:09 12/11/18 09:09 Intake and Output: 12/11/18 12/11/18 06:59 18:59 Intake Total 450 Output Total 954 450 Balance -954 0 - Medications Medications: Current Medications Acetaminophen (Tylenol 325mg Tab) 650 mg PO Q6H PRN PRN Reason: Pain, Mild (1-3) Albuterol/Ipratropium (Duoneb 3 Mg/0.5 Mg (3 Ml) Ud) 3 ml INH RQ6 [facility] Last Admin: 12/11/18 14:23 Dose: Not Given Cyclobenzaprine HCl (Flexeril) 5 mg PO Q8H [facility] Last Admin: 12/11/18 12:35 Dose: 5 mg Heparin Sodium (Porcine) (Heparin) 5,000 units SC Q12 [facility] Last Admin: 12/11/18 09:11 Dose: 5,000 units Hydromorphone HCl (Dilaudid) 0.5 mg IVP Q3H PRN PRN Reason: Pain, severe (8-10) Last Admin: 12/11/18 01:04 Dose: 0.5 mg Lactulose (Enulose) 20 gm PO BID [facility] Last Admin: 12/11/18 13:36 Dose: 20 gm Lamotrigine (Lamictal) 150 mg PO BID [facility] Last Admin: 12/11/18 09:14 Dose: 150 mg Oxcarbazepine (Trileptal) 300 mg PO BID [facility] Last Admin: 12/11/18 09:14 Dose: 300 mg Oxycodone HCl (Oxycodone Immediate Release Tab) 5 mg PO Q6 PRN PRN Reason: Pain, moderate (4-7) - Labs Labs: 12/09/18 13:02 12/09/18 13:02 PT 13.1 SECONDS (9.7-12.2) H 12/09/18 13:02 INR 1.2 12/09/18 13:02 APTT 35.3 SECONDS (21-34) H 12/09/18 13:02 - Constitutional Appears: Well - Head Exam Head Exam: ATRAUMATIC, NORMAL INSPECTION, NORMOCEPHALIC - Eye Exam Eye Exam: EOMI, Normal appearance, PERRL Pupil Exam: NORMAL ACCOMODATION, PERRL - ENT Exam ENT Exam: Mucous Membranes Moist, Normal Exam - Neck Exam Neck Exam: Full ROM, Normal Inspection. absent: Lymphadenopathy - Respiratory Exam Respiratory Exam: Decreased Breath Sounds - Cardiovascular Exam Cardiovascular Exam: REGULAR RHYTHM, +S1, +S2 - GI/Abdominal Exam GI & Abdominal Exam: Soft, Diminished Bowel Sounds - Rectal Exam Rectal Exam: Deferred - Neurological Exam Neurological Exam: Oriented x3 Assessment and Plan - Assessment and Plan (Free Text) Plan: dilaudid duoneb flexeril heparin lamictal oxycodone IR trileptal tylenol plan discussed with patient moderate complexity of care labs reivewed medications reviewed vitals reviewed
[2018-12-11] MEDS: oxyCODONE 5 mg Immediate Release Tab PO PRN (17:35)
--- NOTE | 2018-12-11 17:51 | RAD ---
Date of service: 12/11/2018 HISTORY: s/p Chest Tube; f/u PTX COMPARISON: 12/09/2018 TECHNIQUE: 1 view obtained. FINDINGS: LUNGS: No significant interval changes in the lungs noted since the previous exam. PLEURA: Right chest tube is again seen in place. CARDIOVASCULAR: No aortic atherosclerotic calcification present. Normal cardiac size. No pulmonary vascular congestion. OSSEOUS STRUCTURES: No significant abnormalities. VISUALIZED UPPER ABDOMEN: Normal. OTHER FINDINGS: Stimulator device is again noted in the left chest with the wire extending to the cervical spine region. IMPRESSION: No significant interval changes.
[2018-12-11 19:48] VITALS: RESP 20
[2018-12-12] MEDS: Albuterol-Ipratrop 3 mg / 0.5 (3 ml) UD INH SCH ×4 (01:25→19:45)
--- NOTE | 2018-12-12 14:56 | CP.PCM.PN ---
<Stuart Daley - Last Filed: 12/12/18 14:53> Subjective - Date & Time of Evaluation Date of Evaluation: 12/12/18 Time of Evaluation: 07:55 - Subjective Subjective: CT Surgery Progress note. Dr. Shi Pt seen and examined at bedside. Still reports chino-incisional chest pain in right chest. Denies any N/V/D. Right sided-chest tube in place with serosang output noted, no leaks, to wall suction. No new complaints. Objective - Vital Signs/Intake and Output Vital Signs (last 24 hours): Temp Pulse Resp BP Pulse Ox 98.3 F 70 20 114/72 98 12/12/18 07:00 12/12/18 07:00 12/12/18 07:00 12/12/18 07:00 12/12/18 07:00 Intake and Output: 12/12/18 12/12/18 06:59 18:59 Output Total 350 Balance -350 - Medications Medications: Current Medications Acetaminophen (Tylenol 325mg Tab) 650 mg PO Q6H PRN PRN Reason: Pain, Mild (1-3) Albuterol/Ipratropium (Duoneb 3 Mg/0.5 Mg (3 Ml) Ud) 3 ml INH RQ6 [facility] Last Admin: 12/12/18 14:28 Dose: Not Given Cyclobenzaprine HCl (Flexeril) 5 mg PO Q8H [facility] Last Admin: 12/12/18 12:20 Dose: 5 mg Heparin Sodium (Porcine) (Heparin) 5,000 units SC Q12 [facility] Last Admin: 12/12/18 09:37 Dose: 5,000 units Hydromorphone HCl (Dilaudid) 0.5 mg IVP Q3H PRN PRN Reason: Pain, severe (8-10) Last Admin: 12/11/18 01:04 Dose: 0.5 mg Lactulose (Enulose) 20 gm PO BID [facility] Last Admin: 12/12/18 09:47 Dose: Not Given Lamotrigine (Lamictal) 150 mg PO BID [facility] Last Admin: 12/12/18 09:42 Dose: 150 mg Oxcarbazepine (Trileptal) 300 mg PO BID [facility] Last Admin: 12/12/18 09:42 Dose: 300 mg Oxycodone HCl (Oxycodone Immediate Release Tab) 5 mg PO Q6 PRN PRN Reason: Pain, moderate (4-7) Last Admin: 12/11/18 17:35 Dose: 5 mg - Labs Labs: 12/09/18 13:02 12/09/18 13:02 PT 13.1 SECONDS (9.7-12.2) H 12/09/18 13:02 INR 1.2 12/09/18 13:02 APTT 35.3 SECONDS (21-34) H 12/09/18 13:02 - Constitutional Appears: Well, Non-toxic, No Acute Distress - Head Exam Head Exam: ATRAUMATIC, NORMAL INSPECTION, NORMOCEPHALIC - Eye Exam Eye Exam: EOMI, Normal appearance. absent: Scleral icterus - ENT Exam ENT Exam: Mucous Membranes Moist - Respiratory Exam Respiratory Exam: NORMAL BREATHING PATTERN. absent: Accessory Muscle Use, Respiratory Distress Additional comments: Right sided chest tube in place with minimal output noted, to wall suction. No leaks. Dressing, clean, dry and intact. - GI/Abdominal Exam GI & Abdominal Exam: Soft. absent: Distended, Firm, Guarding, Tenderness, Rebound - Extremities Exam Extremities Exam: Normal Inspection. absent: Calf Tenderness - Neurological Exam Neurological Exam: Alert, Awake, Oriented x3 - Psychiatric Exam Psychiatric exam: Normal Affect, Normal Mood - Skin Skin Exam: Dry, Intact, Normal Color, Warm Assessment and Plan - Assessment and Plan (Free Text) Assessment: 53yo F w right sided pneumothorax s/p bedside chest tube placement on 12/09/18. POD 3 Plan: - Continue chest tube to water seal; Maintain water seal for 24hrs and then we will do a clamp trial - Monitor chest tube outputs - Monitor for air leaks - Pain control as needed - Regular diet - f/u CXR in the AM Further recs as per Dr. Yuridia Daley PGY2 surgery <Juan Carlos Shi - Last Filed: 12/13/18 13:05> Objective - Vital Signs/Intake and Output Vital Signs (last 24 hours): Temp Pulse Resp BP Pulse Ox 98.0 F 85 20 110/69 94 L 12/13/18 07:05 12/13/18 07:35 12/13/18 07:05 12/13/18 07:05 12/13/18 07:05 Intake and Output: 12/13/18 12/13/18 06:59 18:59 Intake Total 240 Output Total 0 Balance 240 - Medications Medications: Current Medications Acetaminophen (Tylenol 325mg Tab) 650 mg PO Q6H PRN PRN Reason: Pain, Mild (1-3) Albuterol/Ipratropium (Duoneb 3 Mg/0.5 Mg (3 Ml) Ud) 3 ml INH RQ6 [facility] Last Admin: 12/13/18 08:16 Dose: Not Given Cyclobenzaprine HCl (Flexeril) 5 mg PO Q8H [facility] Last Admin: 12/13/18 10:50 Dose: 5 mg Hydromorphone HCl (Dilaudid) 0.5 mg IVP Q3H PRN PRN Reason: Pain, severe (8-10) Last Admin: 12/11/18 01:04 Dose: 0.5 mg Lactulose (Enulose) 20 gm PO BID [facility] Last Admin: 12/13/18 10:50 Dose: 20 gm Lamotrigine (Lamictal) 150 mg PO BID [facility] Last Admin: 12/13/18 10:52 Dose: 150 mg Oxcarbazepine (Trileptal) 300 mg PO BID [facility] Last Admin: 12/13/18 10:58 Dose: 300 mg Oxycodone HCl (Oxycodone Immediate Release Tab) 5 mg PO Q6 PRN PRN Reason: Pain, moderate (4-7) Last Admin: 12/12/18 18:19 Dose: 5 mg - Labs Labs: 12/09/18 13:02 12/09/18 13:02 PT 13.1 SECONDS (9.7-12.2) H 12/09/18 13:02 INR 1.2 12/09/18 13:02 APTT 35.3 SECONDS (21-34) H 12/09/18 13:02 Addendum Addendum: 12/13/18 13:03 I have discussed Rx plan ie off sution x24 hours, followed by clamping the tubex24 hours, and the DC tube on Wed.
--- NOTE | 2018-12-12 16:29 | CP.PCM.PN ---
Objective - Vital Signs/Intake and Output Vital Signs (last 24 hours): Temp Pulse Resp BP Pulse Ox 99.4 F 94 H 20 113/72 98 12/12/18 15:06 12/12/18 16:00 12/12/18 15:06 12/12/18 15:06 12/12/18 15:06 Intake and Output: 12/12/18 12/12/18 06:59 18:59 Intake Total 400 Output Total 350 5 Balance -350 395 - Medications Medications: Current Medications Acetaminophen (Tylenol 325mg Tab) 650 mg PO Q6H PRN PRN Reason: Pain, Mild (1-3) Albuterol/Ipratropium (Duoneb 3 Mg/0.5 Mg (3 Ml) Ud) 3 ml INH RQ6 [facility] Last Admin: 12/12/18 14:28 Dose: Not Given Cyclobenzaprine HCl (Flexeril) 5 mg PO Q8H [facility] Last Admin: 12/12/18 12:20 Dose: 5 mg Heparin Sodium (Porcine) (Heparin) 5,000 units SC Q12 [facility] Last Admin: 12/12/18 09:37 Dose: 5,000 units Hydromorphone HCl (Dilaudid) 0.5 mg IVP Q3H PRN PRN Reason: Pain, severe (8-10) Last Admin: 12/11/18 01:04 Dose: 0.5 mg Lactulose (Enulose) 20 gm PO BID [facility] Last Admin: 12/12/18 09:47 Dose: Not Given Lamotrigine (Lamictal) 150 mg PO BID [facility] Last Admin: 12/12/18 09:42 Dose: 150 mg Oxcarbazepine (Trileptal) 300 mg PO BID [facility] Last Admin: 12/12/18 09:42 Dose: 300 mg Oxycodone HCl (Oxycodone Immediate Release Tab) 5 mg PO Q6 PRN PRN Reason: Pain, moderate (4-7) Last Admin: 12/11/18 17:35 Dose: 5 mg - Labs Labs: 12/09/18 13:02 12/09/18 13:02 PT 13.1 SECONDS (9.7-12.2) H 12/09/18 13:02 INR 1.2 12/09/18 13:02 APTT 35.3 SECONDS (21-34) H 12/09/18 13:02 Assessment and Plan (1) Pneumothorax on right Status: Acute (2) SOB (shortness of breath) Status: Acute
--- NOTE | 2018-12-12 17:25 | CP.PCM.PN ---
Subjective - Date & Time of Evaluation Date of Evaluation: 12/12/18 Time of Evaluation: 11:00 - Subjective Subjective: patient seen today no diarrhea no dizziness no vomiting no fever no nausea no shortness of breath Objective - Vital Signs/Intake and Output Vital Signs (last 24 hours): Temp Pulse Resp BP Pulse Ox 99.4 F 94 H 20 113/72 98 12/12/18 15:06 12/12/18 16:00 12/12/18 15:06 12/12/18 15:06 12/12/18 15:06 Intake and Output: 12/12/18 12/12/18 06:59 18:59 Intake Total 400 Output Total 350 5 Balance -350 395 - Medications Medications: Current Medications Acetaminophen (Tylenol 325mg Tab) 650 mg PO Q6H PRN PRN Reason: Pain, Mild (1-3) Albuterol/Ipratropium (Duoneb 3 Mg/0.5 Mg (3 Ml) Ud) 3 ml INH RQ6 [facility] Last Admin: 12/12/18 14:28 Dose: Not Given Cyclobenzaprine HCl (Flexeril) 5 mg PO Q8H [facility] Last Admin: 12/12/18 12:20 Dose: 5 mg Heparin Sodium (Porcine) (Heparin) 5,000 units SC Q12 [facility] Last Admin: 12/12/18 09:37 Dose: 5,000 units Hydromorphone HCl (Dilaudid) 0.5 mg IVP Q3H PRN PRN Reason: Pain, severe (8-10) Last Admin: 12/11/18 01:04 Dose: 0.5 mg Lactulose (Enulose) 20 gm PO BID [facility] Last Admin: 12/12/18 09:47 Dose: Not Given Lamotrigine (Lamictal) 150 mg PO BID [facility] Last Admin: 12/12/18 09:42 Dose: 150 mg Oxcarbazepine (Trileptal) 300 mg PO BID [facility] Last Admin: 12/12/18 09:42 Dose: 300 mg Oxycodone HCl (Oxycodone Immediate Release Tab) 5 mg PO Q6 PRN PRN Reason: Pain, moderate (4-7) Last Admin: 12/11/18 17:35 Dose: 5 mg - Labs Labs: 12/09/18 13:02 12/09/18 13:02 PT 13.1 SECONDS (9.7-12.2) H 12/09/18 13:02 INR 1.2 12/09/18 13:02 APTT 35.3 SECONDS (21-34) H 12/09/18 13:02 - Constitutional Appears: Well - Head Exam Head Exam: ATRAUMATIC, NORMAL INSPECTION, NORMOCEPHALIC - Eye Exam Eye Exam: EOMI, Normal appearance, PERRL Pupil Exam: NORMAL ACCOMODATION, PERRL - ENT Exam ENT Exam: Mucous Membranes Moist, Normal Exam - Neck Exam Neck Exam: Full ROM, Normal Inspection. absent: Lymphadenopathy - Respiratory Exam Respiratory Exam: Decreased Breath Sounds - Cardiovascular Exam Cardiovascular Exam: REGULAR RHYTHM, +S1, +S2 - GI/Abdominal Exam GI & Abdominal Exam: Diminished Bowel Sounds - Rectal Exam Rectal Exam: Deferred - Neurological Exam Neurological Exam: Oriented x3 Assessment and Plan - Assessment and Plan (Free Text) Plan: plan discussed with patient moderate complexity of care labs reivewed medications reviewed vitals reviewed dilaudid duoneb flexeril heparin lamictal oxycodone IR trileptal tylenol
[2018-12-12] MEDS: oxyCODONE 5 mg Immediate Release Tab PO PRN (18:19)
--- NOTE | 2018-12-12 19:54 | RAD ---
Date of service: 12/12/2018 HISTORY: s/p Chest Tube; PTX COMPARISON: Comparison is made with 12/11/2018 TECHNIQUE: 1 view obtained. FINDINGS: LUNGS: No significant interval change in the lungs noted since the previous exam PLEURA: No significant pleural effusion identified, no pneumothorax apparent. CARDIOVASCULAR: No aortic atherosclerotic calcification present. Normal cardiac size. No pulmonary vascular congestion. OSSEOUS STRUCTURES: No significant abnormalities. VISUALIZED UPPER ABDOMEN: Normal. OTHER FINDINGS: None. IMPRESSION: No active disease.
[2018-12-13] MEDS: Albuterol-Ipratrop 3 mg / 0.5 (3 ml) UD INH SCH ×4 (01:23→19:37)
--- NOTE | 2018-12-13 07:23 | CP.PCM.PN ---
Subjective - Date & Time of Evaluation Date of Evaluation: 12/13/18 Time of Evaluation: 07:20 - Subjective Subjective: Surgery Progress Note for Dr. Shi 53F seen and evaluated at bedside this morning. No acute events overnight. No complaints this morning. Chest tube on waterseal, no drainage overnight. States right sided chest pain is better. No difficulties breathing. Tolerating diet without nausea/vomiting. Denies f/c, diarrhea, abd pain, SOB, or urinary symptoms. Objective - Vital Signs/Intake and Output Vital Signs (last 24 hours): Temp Pulse Resp BP Pulse Ox 98.1 F 83 20 115/73 98 12/12/18 23:30 12/12/18 23:30 12/12/18 23:30 12/12/18 23:30 12/12/18 23:30 Intake and Output: 12/13/18 12/13/18 06:59 18:59 Intake Total 240 Output Total 0 Balance 240 - Medications Medications: Current Medications Acetaminophen (Tylenol 325mg Tab) 650 mg PO Q6H PRN PRN Reason: Pain, Mild (1-3) Albuterol/Ipratropium (Duoneb 3 Mg/0.5 Mg (3 Ml) Ud) 3 ml INH RQ6 [facility] Last Admin: 12/13/18 01:23 Dose: Not Given Cyclobenzaprine HCl (Flexeril) 5 mg PO Q8H [facility] Last Admin: 12/13/18 04:01 Dose: 5 mg Heparin Sodium (Porcine) (Heparin) 5,000 units SC Q12 [facility] Last Admin: 12/12/18 21:35 Dose: 5,000 units Hydromorphone HCl (Dilaudid) 0.5 mg IVP Q3H PRN PRN Reason: Pain, severe (8-10) Last Admin: 12/11/18 01:04 Dose: 0.5 mg Lactulose (Enulose) 20 gm PO BID [facility] Last Admin: 12/12/18 18:14 Dose: 20 gm Lamotrigine (Lamictal) 150 mg PO BID [facility] Last Admin: 12/12/18 18:14 Dose: 150 mg Oxcarbazepine (Trileptal) 300 mg PO BID [facility] Last Admin: 12/12/18 18:14 Dose: 300 mg Oxycodone HCl (Oxycodone Immediate Release Tab) 5 mg PO Q6 PRN PRN Reason: Pain, moderate (4-7) Last Admin: 12/12/18 18:19 Dose: 5 mg - Labs Labs: 12/09/18 13:02 12/09/18 13:02 PT 13.1 SECONDS (9.7-12.2) H 12/09/18 13:02 INR 1.2 12/09/18 13:02 APTT 35.3 SECONDS (21-34) H 12/09/18 13:02 - Constitutional Appears: Well, Non-toxic, No Acute Distress - Head Exam Head Exam: ATRAUMATIC, NORMAL INSPECTION, NORMOCEPHALIC - Eye Exam Eye Exam: EOMI - ENT Exam ENT Exam: Mucous Membranes Moist - Respiratory Exam Respiratory Exam: Chest Wall Tenderness, NORMAL BREATHING PATTERN. absent: Accessory Muscle Use, Decreased Breath Sounds, Wheezes, Respiratory Distress Additional comments: chest tube on waterseal, dressings c/d/i - GI/Abdominal Exam GI & Abdominal Exam: Soft, Normal Bowel Sounds. absent: Tenderness - Neurological Exam Neurological Exam: Alert, Awake, Oriented x3 - Psychiatric Exam Psychiatric exam: Normal Affect, Normal Mood - Skin Skin Exam: Dry, Intact, Normal Color, Warm Assessment and Plan - Assessment and Plan (Free Text) Assessment: 53F s/p bedside chest tube POD4 Plan: Will clamp tube today FU CXR in AM Monitor respiratory status Possible removal of chest tube tomorrow D/w Dr. Yuridia Carter PGY1
--- NOTE | 2018-12-13 10:10 | RAD ---
Date of service: 12/13/2018 HISTORY: Chest Tube COMPARISON: 12/12/2018 FINDINGS: LUNGS: Lines and tubes in stable position. Persistent trace right pleural effusion. Mild venous congestion. PLEURA: As above. CARDIOVASCULAR: No aortic atherosclerotic calcification present. Normal cardiac size. Left-sided battery pack/simulator device in place. OSSEOUS STRUCTURES: No significant abnormalities. VISUALIZED UPPER ABDOMEN: Normal. OTHER FINDINGS: None. IMPRESSION: No significant interval change.
--- NOTE | 2018-12-13 12:44 | CP.PCM.PN ---
Subjective - Date & Time of Evaluation Date of Evaluation: 12/13/18 Time of Evaluation: 12:27 - Subjective Subjective: Pt s/e. No sob. c/o burning sensation around the chest tube site. Dressing dry. wound-No erythema. chest tube-off suction x24 hours-No air leak and 8cc output of serous fluid. A negative intrapleural pressure. [id number] CXR from thie am-No pneumothorax. a/p: Satisfactory hospital course so far. Incentive spirometer. cxr and lab in am. clamp the tube. Consider removing the tube tomorrow(predicated on chest xray). Objective - Vital Signs/Intake and Output Vital Signs (last 24 hours): Temp Pulse Resp BP Pulse Ox 98.0 F 85 20 110/69 94 L 12/13/18 07:05 12/13/18 07:35 12/13/18 07:05 12/13/18 07:05 12/13/18 07:05 Intake and Output: 12/13/18 12/13/18 06:59 18:59 Intake Total 240 Output Total 0 Balance 240 - Medications Medications: Current Medications Acetaminophen (Tylenol 325mg Tab) 650 mg PO Q6H PRN PRN Reason: Pain, Mild (1-3) Albuterol/Ipratropium (Duoneb 3 Mg/0.5 Mg (3 Ml) Ud) 3 ml INH RQ6 [facility] Last Admin: 12/13/18 08:16 Dose: Not Given Cyclobenzaprine HCl (Flexeril) 5 mg PO Q8H [facility] Last Admin: 12/13/18 10:50 Dose: 5 mg Hydromorphone HCl (Dilaudid) 0.5 mg IVP Q3H PRN PRN Reason: Pain, severe (8-10) Last Admin: 12/11/18 01:04 Dose: 0.5 mg Lactulose (Enulose) 20 gm PO BID [facility] Last Admin: 12/13/18 10:50 Dose: 20 gm Lamotrigine (Lamictal) 150 mg PO BID [facility] Last Admin: 12/13/18 10:52 Dose: 150 mg Oxcarbazepine (Trileptal) 300 mg PO BID [facility] Last Admin: 12/13/18 10:58 Dose: 300 mg Oxycodone HCl (Oxycodone Immediate Release Tab) 5 mg PO Q6 PRN PRN Reason: Pain, moderate (4-7) Last Admin: 12/12/18 18:19 Dose: 5 mg - Labs Labs: 12/09/18 13:02 12/09/18 13:02 PT 13.1 SECONDS (9.7-12.2) H 12/09/18 13:02 INR 1.2 12/09/18 13:02 APTT 35.3 SECONDS (21-34) H 12/09/18 13:02
--- NOTE | 2018-12-13 14:13 | CP.PCM.PN ---
Subjective - Date & Time of Evaluation Date of Evaluation: 12/13/18 Time of Evaluation: 09:30 - Subjective Subjective: patient examined today no nausea no vomiting no dizziness no diarrhea no fever no shortness of breath Objective - Vital Signs/Intake and Output Vital Signs (last 24 hours): Temp Pulse Resp BP Pulse Ox 98.0 F 85 20 110/69 94 L 12/13/18 07:05 12/13/18 07:35 12/13/18 07:05 12/13/18 07:05 12/13/18 07:05 Intake and Output: 12/13/18 12/13/18 06:59 18:59 Intake Total 240 Output Total 0 Balance 240 - Medications Medications: Current Medications Acetaminophen (Tylenol 325mg Tab) 650 mg PO Q6H PRN PRN Reason: Pain, Mild (1-3) Albuterol/Ipratropium (Duoneb 3 Mg/0.5 Mg (3 Ml) Ud) 3 ml INH RQ6 [facility] Last Admin: 12/13/18 13:22 Dose: Not Given Cyclobenzaprine HCl (Flexeril) 5 mg PO Q8H [facility] Last Admin: 12/13/18 10:50 Dose: 5 mg Hydromorphone HCl (Dilaudid) 0.5 mg IVP Q3H PRN PRN Reason: Pain, severe (8-10) Last Admin: 12/11/18 01:04 Dose: 0.5 mg Lactulose (Enulose) 20 gm PO BID [facility] Last Admin: 12/13/18 10:50 Dose: 20 gm Lamotrigine (Lamictal) 150 mg PO BID [facility] Last Admin: 12/13/18 10:52 Dose: 150 mg Oxcarbazepine (Trileptal) 300 mg PO BID [facility] Last Admin: 12/13/18 10:58 Dose: 300 mg Oxycodone HCl (Oxycodone Immediate Release Tab) 5 mg PO Q6 PRN PRN Reason: Pain, moderate (4-7) Last Admin: 12/12/18 18:19 Dose: 5 mg - Labs Labs: 12/09/18 13:02 12/09/18 13:02 PT 13.1 SECONDS (9.7-12.2) H 12/09/18 13:02 INR 1.2 12/09/18 13:02 APTT 35.3 SECONDS (21-34) H 12/09/18 13:02 - Constitutional Appears: Well - Head Exam Head Exam: ATRAUMATIC, NORMAL INSPECTION, NORMOCEPHALIC - Eye Exam Eye Exam: EOMI, Normal appearance, PERRL Pupil Exam: NORMAL ACCOMODATION, PERRL - ENT Exam ENT Exam: Mucous Membranes Moist, Normal Exam - Neck Exam Neck Exam: Full ROM, Normal Inspection. absent: Lymphadenopathy - Respiratory Exam Respiratory Exam: Decreased Breath Sounds - Cardiovascular Exam Cardiovascular Exam: REGULAR RHYTHM, +S1, +S2 (1) - GI/Abdominal Exam GI & Abdominal Exam: Soft, Diminished Bowel Sounds - Rectal Exam Rectal Exam: Deferred - Neurological Exam Neurological Exam: Oriented x3 Assessment and Plan - Assessment and Plan (Free Text) Plan: plan discussed with patient and staff moderate complexity of care dilaudid duoneb enulose flexeril lamictal oxycodone IR tab trileptal tylenol medications reviewed labs reviewed vitals reviewed
--- NOTE | 2018-12-13 16:37 | CP.PCM.PN ---
Subjective - Date & Time of Evaluation Date of Evaluation: 12/13/18 Time of Evaluation: 16:37 Objective - Vital Signs/Intake and Output Vital Signs (last 24 hours): Temp Pulse Resp BP Pulse Ox 98.2 F 90 20 99/63 L 96 12/13/18 15:03 12/13/18 15:03 12/13/18 15:03 12/13/18 15:03 12/13/18 15:03 Intake and Output: 12/13/18 12/13/18 06:59 18:59 Intake Total 240 Output Total 0 Balance 240 - Medications Medications: Current Medications Acetaminophen (Tylenol 325mg Tab) 650 mg PO Q6H PRN PRN Reason: Pain, Mild (1-3) Albuterol/Ipratropium (Duoneb 3 Mg/0.5 Mg (3 Ml) Ud) 3 ml INH RQ6 [facility] Last Admin: 12/13/18 13:22 Dose: Not Given Cyclobenzaprine HCl (Flexeril) 5 mg PO Q8H [facility] Last Admin: 12/13/18 10:50 Dose: 5 mg Hydromorphone HCl (Dilaudid) 0.5 mg IVP Q3H PRN PRN Reason: Pain, severe (8-10) Last Admin: 12/11/18 01:04 Dose: 0.5 mg Lactulose (Enulose) 20 gm PO BID [facility] Last Admin: 12/13/18 10:50 Dose: 20 gm Lamotrigine (Lamictal) 150 mg PO BID [facility] Last Admin: 12/13/18 10:52 Dose: 150 mg Oxcarbazepine (Trileptal) 300 mg PO BID [facility] Last Admin: 12/13/18 10:58 Dose: 300 mg Oxycodone HCl (Oxycodone Immediate Release Tab) 5 mg PO Q6 PRN PRN Reason: Pain, moderate (4-7) Last Admin: 12/12/18 18:19 Dose: 5 mg - Labs Labs: 12/09/18 13:02 12/09/18 13:02 PT 13.1 SECONDS (9.7-12.2) H 12/09/18 13:02 INR 1.2 12/09/18 13:02 APTT 35.3 SECONDS (21-34) H 12/09/18 13:02 Assessment and Plan (1) Pneumothorax on right Status: Acute (2) SOB (shortness of breath) Status: Acute
[2018-12-13] MEDS: oxyCODONE 5 mg Immediate Release Tab PO PRN (18:00)
[2018-12-14] MEDS: HYDROmorphone 0.5 mg/0.5 ml ISec IVP PRN
[2018-12-14] MEDS: Albuterol-Ipratrop 3 mg / 0.5 (3 ml) UD INH SCH ×4 (01:38→20:00)
--- NOTE | 2018-12-14 07:49 | CARD ---
APPROVED REPORT Date of service: 12/09/2018 EKG Measurement Heart [id number] <Conclusion> Normal sinus rhythm Normal ECG
--- NOTE | 2018-12-14 10:54 | RAD ---
Chest x-ray single frontal view HISTORY: Pneumothorax. Comparison: 12/13/2018 FINDINGS: Right chest tube with tip extending to the right lung apex. Residual tiny right apical pneumothorax. Mild venous congestion. Right hilar prominence. Blunted bilateral costophrenic angles. Left-sided battery device in place. Atherosclerotic calcification at the aortic knob. Degenerative changes in the spine and shoulders. Impression: No significant interval change.
--- NOTE | 2018-12-14 11:29 | CP.PCM.PN ---
Subjective - Date & Time of Evaluation Date of Evaluation: 12/14/18 Time of Evaluation: 11:25 - Subjective Subjective: Surgery Progress Note for Dr. Shi 53F seen and evaluated at bedside this morning. No acute events overnight. No complaints this morning. Chest tube clamped. No difficulties breathing. Patient using IS and ambulating. Denies f/c, n/v/d, SOB, CP, or urinary symptoms. Objective - Vital Signs/Intake and Output Vital Signs (last 24 hours): Temp Pulse Resp BP Pulse Ox 98.2 F 88 20 90/59 L 96 12/14/18 07:00 12/14/18 07:00 12/14/18 07:00 12/14/18 07:00 12/14/18 07:00 Intake and Output: 12/14/18 12/14/18 06:59 18:59 Intake Total 480 Output Total 0 Balance 480 - Medications Medications: Current Medications Acetaminophen (Tylenol 325mg Tab) 650 mg PO Q6H PRN PRN Reason: Pain, Mild (1-3) Albuterol/Ipratropium (Duoneb 3 Mg/0.5 Mg (3 Ml) Ud) 3 ml INH RQ6 [facility] Last Admin: 12/14/18 09:30 Dose: Not Given Cyclobenzaprine HCl (Flexeril) 5 mg PO Q8H [facility] Last Admin: 12/14/18 03:30 Dose: Not Given Hydromorphone HCl (Dilaudid) 0.5 mg IVP Q3H PRN PRN Reason: Pain, severe (8-10) Last Admin: 12/14/18 00:00 Dose: 0.5 mg Lactulose (Enulose) 20 gm PO BID [facility] Last Admin: 12/14/18 09:55 Dose: Not Given Lamotrigine (Lamictal) 150 mg PO BID [facility] Last Admin: 12/14/18 09:56 Dose: 150 mg Oxcarbazepine (Trileptal) 300 mg PO BID [facility] Last Admin: 12/14/18 09:54 Dose: 300 mg Oxycodone HCl (Oxycodone Immediate Release Tab) 5 mg PO Q6 PRN PRN Reason: Pain, moderate (4-7) Last Admin: 12/13/18 18:00 Dose: 5 mg - Labs Labs: 12/09/18 13:02 12/09/18 13:02 PT 13.1 SECONDS (9.7-12.2) H 12/09/18 13:02 INR 1.2 12/09/18 13:02 APTT 35.3 SECONDS (21-34) H 12/09/18 13:02 - Constitutional Appears: Well, Non-toxic, No Acute Distress - Head Exam Head Exam: ATRAUMATIC, NORMAL INSPECTION, NORMOCEPHALIC - Eye Exam Eye Exam: EOMI Pupil Exam: PERRL - ENT Exam ENT Exam: Mucous Membranes Moist - Respiratory Exam Respiratory Exam: Chest Wall Tenderness, NORMAL BREATHING PATTERN. absent: Wheezes, Respiratory Distress Additional comments: chest tube clamped - GI/Abdominal Exam GI & Abdominal Exam: Soft, Normal Bowel Sounds. 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 Yuridia Carter PGY1
--- NOTE | 2018-12-14 13:34 | RAD ---
Date of service: 12/14/2018 HISTORY: s/p chest tube removal COMPARISON: Multiple serial examinations preceding the most recent study: December 14, 2018. Study performed 08:16. FINDINGS: LUNGS: No active pulmonary disease. PLEURA: No pneumothorax following chest tube removal from the right pleural space. Blunting of the left costophrenic sulcus stable finding. CARDIOVASCULAR: No atherosclerotic calcification present No radiographic findings to suggest acute or significant cardiovascular disease. OSSEOUS STRUCTURES: No significant abnormalities. VISUALIZED UPPER ABDOMEN: Normal. OTHER FINDINGS: None. IMPRESSION: No adverse findings common no pneumothorax following removal of chest tube from the right pleural space.
--- NOTE | 2018-12-14 14:25 | CP.PCM.PN ---
Subjective - Date & Time of Evaluation Date of Evaluation: 12/14/18 Time of Evaluation: 14:22 - Subjective Subjective: Pt s/e. No c/o. cxr this am_No pneumothorax. chest tube removed. cxr-Postremoval of the tube- No pneumothorax. a/p: Resolution of spontaneous pneumothorax. d/c home provided cxr tomorrow am remains satisfactory. Objective - Vital Signs/Intake and Output Vital Signs (last 24 hours): Temp Pulse Resp BP Pulse Ox 98.2 F 76 20 90/59 L 96 12/14/18 07:00 12/14/18 07:35 12/14/18 07:00 12/14/18 07:00 12/14/18 07:00 Intake and Output: 12/14/18 12/14/18 06:59 18:59 Intake Total 480 Output Total 0 Balance 480 - Medications Medications: Current Medications Acetaminophen (Tylenol 325mg Tab) 650 mg PO Q6H PRN PRN Reason: Pain, Mild (1-3) Albuterol/Ipratropium (Duoneb 3 Mg/0.5 Mg (3 Ml) Ud) 3 ml INH RQ6 [facility] Last Admin: 12/14/18 13:31 Dose: Not Given Cyclobenzaprine HCl (Flexeril) 5 mg PO Q8H [facility] Last Admin: 12/14/18 11:28 Dose: 5 mg Hydromorphone HCl (Dilaudid) 0.5 mg IVP Q3H PRN PRN Reason: Pain, severe (8-10) Last Admin: 12/14/18 00:00 Dose: 0.5 mg Lactulose (Enulose) 20 gm PO BID [facility] Last Admin: 12/14/18 09:55 Dose: Not Given Lamotrigine (Lamictal) 150 mg PO BID [facility] Last Admin: 12/14/18 09:56 Dose: 150 mg Oxcarbazepine (Trileptal) 300 mg PO BID [facility] Last Admin: 12/14/18 09:54 Dose: 300 mg Oxycodone HCl (Oxycodone Immediate Release Tab) 5 mg PO Q6 PRN PRN Reason: Pain, moderate (4-7) Last Admin: 12/13/18 18:00 Dose: 5 mg - Labs Labs: 12/09/18 13:02 12/09/18 13:02 PT 13.1 SECONDS (9.7-12.2) H 12/09/18 13:02 INR 1.2 12/09/18 13:02 APTT 35.3 SECONDS (21-34) H 12/09/18 13:02
--- NOTE | 2018-12-14 20:15 | CP.PCM.PN ---
Subjective - Date & Time of Evaluation Date of Evaluation: 12/14/18 - Subjective Subjective: patient examined today no nausea, no vomiting, no dizziness, no diarrhea, no fever no shortness of breath Objective - Vital Signs/Intake and Output Vital Signs (last 24 hours): Temp Pulse Resp BP Pulse Ox 98.3 F 92 H 20 121/80 98 12/14/18 15:05 12/14/18 15:05 12/14/18 15:05 12/14/18 15:05 12/14/18 15:05 Intake and Output: 12/14/18 12/15/18 18:59 06:59 Intake Total 350 Balance 350 - Medications Medications: Current Medications Acetaminophen (Tylenol 325mg Tab) 650 mg PO Q6H PRN PRN Reason: Pain, Mild (1-3) Albuterol/Ipratropium (Duoneb 3 Mg/0.5 Mg (3 Ml) Ud) 3 ml INH RQ6 [facility] Last Admin: 12/14/18 20:00 Dose: Not Given Cyclobenzaprine HCl (Flexeril) 5 mg PO Q8H [facility] Last Admin: 12/14/18 18:44 Dose: 5 mg Hydromorphone HCl (Dilaudid) 0.5 mg IVP Q3H PRN PRN Reason: Pain, severe (8-10) Last Admin: 12/14/18 00:00 Dose: 0.5 mg Ibuprofen (Motrin Tab) 400 mg PO BID PRN PRN Reason: pain scale 3-9 Last Admin: 12/14/18 14:58 Dose: 400 mg Lactulose (Enulose) 20 gm PO BID [facility] Last Admin: 12/14/18 18:44 Dose: 20 gm Lamotrigine (Lamictal) 150 mg PO BID [facility] Last Admin: 12/14/18 17:35 Dose: 150 mg Oxcarbazepine (Trileptal) 300 mg PO BID [facility] Last Admin: 12/14/18 17:34 Dose: 300 mg Oxycodone HCl (Oxycodone Immediate Release Tab) 5 mg PO Q6 PRN PRN Reason: Pain, moderate (4-7) Last Admin: 12/13/18 18:00 Dose: 5 mg - Labs Labs: 12/09/18 13:02 12/09/18 13:02 PT 13.1 SECONDS (9.7-12.2) H 12/09/18 13:02 INR 1.2 12/09/18 13:02 APTT 35.3 SECONDS (21-34) H 12/09/18 13:02 - Constitutional Appears: Well - Head Exam Head Exam: ATRAUMATIC, NORMAL INSPECTION, NORMOCEPHALIC - Eye Exam Eye Exam: EOMI, Normal appearance, PERRL Pupil Exam: NORMAL ACCOMODATION, PERRL - ENT Exam ENT Exam: Mucous Membranes Moist, Normal Exam - Neck Exam Neck Exam: Full ROM, Normal Inspection. absent: Lymphadenopathy - Respiratory Exam Respiratory Exam: Decreased Breath Sounds - Cardiovascular Exam Cardiovascular Exam: REGULAR RHYTHM, +S1, +S2 - GI/Abdominal Exam GI & Abdominal Exam: Soft, Diminished Bowel Sounds - Rectal Exam Rectal Exam: Deferred - Neurological Exam Neurological Exam: Oriented x3 Assessment and Plan - Assessment and Plan (Free Text) Plan: plan discussed with patient and staff moderate complexity of care medications reviewed labs reviewed vitals reviewed dilaudid duoneb enulose flexeril lamictal oxycodone IR tab trileptal tylenol
--- NOTE | 2018-12-14 20:21 | CP.PCM.PN ---
Subjective - Date & Time of Evaluation Date of Evaluation: 12/14/18 Time of Evaluation: 20:21 Objective - Vital Signs/Intake and Output Vital Signs (last 24 hours): Temp Pulse Resp BP Pulse Ox 98.3 F 92 H 20 121/80 98 12/14/18 15:05 12/14/18 15:05 12/14/18 15:05 12/14/18 15:05 12/14/18 15:05 Intake and Output: 12/14/18 12/15/18 18:59 06:59 Intake Total 350 Balance 350 - Medications Medications: Current Medications Acetaminophen (Tylenol 325mg Tab) 650 mg PO Q6H PRN PRN Reason: Pain, Mild (1-3) Albuterol/Ipratropium (Duoneb 3 Mg/0.5 Mg (3 Ml) Ud) 3 ml INH RQ6 [facility] Last Admin: 12/14/18 20:00 Dose: Not Given Cyclobenzaprine HCl (Flexeril) 5 mg PO Q8H [facility] Last Admin: 12/14/18 18:44 Dose: 5 mg Hydromorphone HCl (Dilaudid) 0.5 mg IVP Q3H PRN PRN Reason: Pain, severe (8-10) Last Admin: 12/14/18 00:00 Dose: 0.5 mg Ibuprofen (Motrin Tab) 400 mg PO BID PRN PRN Reason: pain scale 3-9 Last Admin: 12/14/18 14:58 Dose: 400 mg Lactulose (Enulose) 20 gm PO BID [facility] Last Admin: 12/14/18 18:44 Dose: 20 gm Lamotrigine (Lamictal) 150 mg PO BID [facility] Last Admin: 12/14/18 17:35 Dose: 150 mg Oxcarbazepine (Trileptal) 300 mg PO BID [facility] Last Admin: 12/14/18 17:34 Dose: 300 mg Oxycodone HCl (Oxycodone Immediate Release Tab) 5 mg PO Q6 PRN PRN Reason: Pain, moderate (4-7) Last Admin: 12/13/18 18:00 Dose: 5 mg - Labs Labs: 12/09/18 13:02 12/09/18 13:02 PT 13.1 SECONDS (9.7-12.2) H 12/09/18 13:02 INR 1.2 12/09/18 13:02 APTT 35.3 SECONDS (21-34) H 12/09/18 13:02 Assessment and Plan (1) Pneumothorax on right Status: Acute (2) SOB (shortness of breath) Status: Acute
[2018-12-15 08:05] VITALS: BP 100/65; PULSE 90; TEMP 97.7; O2SAT 98
--- NOTE | 2018-12-15 09:33 | RAD ---
Chest x-ray single frontal view HISTORY: Chest tube removal. Comparison: 12/14/2018 Findings: Hyperinflation suggestive for COPD and or emphysematous changes. Diffuse increased interstitial lung markings. Blunted bilateral costophrenic angles. Atherosclerotic calcification at the aortic knob. Mild cardiomegaly. Left-sided battery pack in place. Impression: Hyperinflation suggestive for COPD and or emphysematous changes. Diffuse increased interstitial lung markings. Blunted bilateral costophrenic angles. Atherosclerotic calcification at the aortic knob. Mild cardiomegaly. Left-sided battery pack in place.
--- NOTE | 2018-12-15 09:34 | CP.PCM.PN ---
Subjective - Date & Time of Evaluation Date of Evaluation: 12/15/18 Time of Evaluation: 09:42 - Subjective Subjective: Cardiothoracic Surgery Progress Note for Dr. Shi Patient seen and evaluated at bedside this morning. No acute events overnight. No complaints this morning. Chest tube was removed yesterday. Dressing intact. No accessory muscle use or shortness of breath. Patient using IS and ambulating. Denies f/c, n/v/d, SOB, CP, or urinary symptoms. Patient wants to go home. Objective - Vital Signs/Intake and Output Vital Signs (last 24 hours): Temp Pulse Resp BP Pulse Ox 97.7 F 90 20 100/65 98 12/15/18 08:04 12/15/18 08:04 12/15/18 08:04 12/15/18 08:04 12/15/18 08:04 - Medications Medications: Current Medications Acetaminophen (Tylenol 325mg Tab) 650 mg PO Q6H PRN PRN Reason: Pain, Mild (1-3) Cyclobenzaprine HCl (Flexeril) 5 mg PO Q8H [facility] Last Admin: 12/15/18 04:33 Dose: Not Given Hydromorphone HCl (Dilaudid) 0.5 mg IVP Q3H PRN PRN Reason: Pain, severe (8-10) Last Admin: 12/14/18 00:00 Dose: 0.5 mg Ibuprofen (Motrin Tab) 400 mg PO BID PRN PRN Reason: pain scale 3-9 Last Admin: 12/14/18 14:58 Dose: 400 mg Lactulose (Enulose) 20 gm PO BID [facility] Last Admin: 12/15/18 09:10 Dose: 20 gm Lamotrigine (Lamictal) 150 mg PO BID [facility] Last Admin: 12/15/18 09:13 Dose: 150 mg Oxcarbazepine (Trileptal) 300 mg PO BID [facility] Last Admin: 12/15/18 09:09 Dose: 300 mg Oxycodone HCl (Oxycodone Immediate Release Tab) 5 mg PO Q6 PRN PRN Reason: Pain, moderate (4-7) Last Admin: 12/13/18 18:00 Dose: 5 mg - Labs Labs: 12/09/18 13:02 12/09/18 13:02 PT 13.1 SECONDS (9.7-12.2) H 12/09/18 13:02 INR 1.2 12/09/18 13:02 APTT 35.3 SECONDS (21-34) H 12/09/18 13:02 - Additional Findings Additional findings: - Constitutional Appears: Well, Non-toxic, No Acute Distress - Head Exam Head Exam: ATRAUMATIC, NORMAL INSPECTION, NORMOCEPHALIC - Eye Exam Eye Exam: EOMI Pupil Exam: PERRL - ENT Exam ENT Exam: Mucous Membranes Moist - Respiratory Exam Respiratory Exam: Chest Wall Tenderness, NORMAL BREATHING PATTERN. absent: Wheezes, Respiratory Distress Additional comments: chest tube site dressing clean dry and intact - GI/Abdominal Exam GI & Abdominal Exam: Soft, Normal Bowel Sounds. absent: Tenderness - Neurological Exam Neurological Exam: Alert, Awake, Oriented x3 - Psychiatric Exam Psychiatric exam: Normal Affect, Normal Mood - Skin Skin Exam: Dry, Intact, Normal Color, Warm Assessment and Plan - Assessment and Plan (Free Text) Assessment: 53F with spontaneous pneumothorax s/p chest tube insertion POD#6 Plan: AM CXR looks stable Encourage ambulation and IS use Patient clear for discharge from surgical standpoint f/u as outpatient with Dr. Shi within 1 week of discharge Discussed with Dr. Yuridia Wells PGY2
--- NOTE | 2018-12-15 10:30 | CP.PCM.PN ---
Subjective - Date & Time of Evaluation Date of Evaluation: 12/15/18 Time of Evaluation: 10:28 - Subjective Subjective: Discomfort at the chest tube site. cxr-No pneumothorax. a/p: d/c home as per Primary team. [facility]clinic in one week for fu. Objective - Vital Signs/Intake and Output Vital Signs (last 24 hours): Temp Pulse Resp BP Pulse Ox 97.7 F 90 20 100/65 98 12/15/18 08:04 12/15/18 08:04 12/15/18 08:04 12/15/18 08:04 12/15/18 08:04 - Medications Medications: Current Medications Acetaminophen (Tylenol 325mg Tab) 650 mg PO Q6H PRN PRN Reason: Pain, Mild (1-3) Cyclobenzaprine HCl (Flexeril) 5 mg PO Q8H [facility] Last Admin: 12/15/18 04:33 Dose: Not Given Hydromorphone HCl (Dilaudid) 0.5 mg IVP Q3H PRN PRN Reason: Pain, severe (8-10) Last Admin: 12/14/18 00:00 Dose: 0.5 mg Ibuprofen (Motrin Tab) 400 mg PO BID PRN PRN Reason: pain scale 3-9 Last Admin: 12/14/18 14:58 Dose: 400 mg Lactulose (Enulose) 20 gm PO BID [facility] Last Admin: 12/15/18 09:10 Dose: 20 gm Lamotrigine (Lamictal) 150 mg PO BID [facility] Last Admin: 12/15/18 09:13 Dose: 150 mg Oxcarbazepine (Trileptal) 300 mg PO BID [facility] Last Admin: 12/15/18 09:09 Dose: 300 mg Oxycodone HCl (Oxycodone Immediate Release Tab) 5 mg PO Q6 PRN PRN Reason: Pain, moderate (4-7) Last Admin: 12/13/18 18:00 Dose: 5 mg - Labs Labs: 12/09/18 13:02 12/09/18 13:02 PT 13.1 SECONDS (9.7-12.2) H 12/09/18 13:02 INR 1.2 12/09/18 13:02 APTT 35.3 SECONDS (21-34) H 12/09/18 13:02
--- NOTE | 2018-12-15 18:22 | CP.PCM.DIS ---
Provider - Provider Date of Admission: 12/09/18 15:21 Attending physician: Radhika Bedolla MD Consults: 12/09/18 13:32 General Surgery Consult Stat Comment: Consulting Provider: Juan Carlos Shi Consulting Physician: Juan Carlos Shi Reason for Consult: right pneumothorax 12/09/18 17:51 Pulmonology Consult Routine Comment: pneumothorax Consulting Provider: Roxana Saeed Consulting Physician: Roxana Saeed Reason for Consult: pneumothorax 12/09/18 20:31 Neurology Consult Routine Comment: hx seizure Consulting Provider: Johnny Ly Consulting Physician: Johnny Ly Reason for Consult: hx seizure Time Spent in preparation of Discharge (in minutes): 25 Hospital Course - Lab Results Lab Results: Most Recent Lab Values WBC 7.4 K/uL (4.8-10.8) 12/09/18 13:02 RBC 5.56 Mil/uL (3.80-5.20) H 12/09/18 13:02 Hgb 11.0 g/dL (11.0-16.0) 12/09/18 13:02 Hct 34.2 % (34.0-47.0) 12/09/18 13:02 MCV 61.6 fL (81.0-99.0) L D 12/09/18 13:02 MCH 19.9 pg (27.0-31.0) L 12/09/18 13:02 MCHC 32.3 g/dL (33.0-37.0) L 12/09/18 13:02 RDW 17.3 % (11.5-14.5) H 12/09/18 13:02 Plt Count 275 K/uL (130-400) 12/09/18 13:02 MPV 9.3 fL (7.2-11.7) 12/09/18 13:02 Neut % (Auto) 72.0 % (50.0-75.0) 12/09/18 13:02 Lymph % (Auto) 21.0 % (20.0-40.0) 12/09/18 13:02 Rankin % (Auto) 5.0 % (0.0-10.0) 12/09/18 13:02 Eos % (Auto) 1.0 % (0.0-4.0) 12/09/18 13:02 Baso % (Auto) 1.0 % (0.0-2.0) 12/09/18 13:02 Neut # (Auto) 5.3 K/uL (1.8-7.0) 12/09/18 13:02 Lymph # (Auto) 1.6 K/uL (1.0-4.3) 12/09/18 13:02 Rankin # (Auto) 0.4 K/uL (0.0-0.8) 12/09/18 13:02 Eos # (Auto) 0.1 K/uL (0.0-0.7) 12/09/18 13:02 Baso # (Auto) 0.1 K/uL (0.0-0.2) 12/09/18 13:02 PT 13.1 SECONDS (9.7-12.2) H 12/09/18 13:02 INR 1.2 12/09/18 13:02 APTT 35.3 SECONDS (21-34) H 12/09/18 13:02 D-Dimer, Quantitative < 200 ng/mlDDU (0-243) 12/09/18 13:02 Sodium 138 mmol/L (132-148) 12/09/18 13:02 Potassium 4.1 mmol/L (3.6-5.2) 12/09/18 13:02 Chloride 101 mmol/L (98-107) 12/09/18 13:02 Carbon Dioxide 27 mmol/L (22-30) 12/09/18 13:02 Anion Gap 14 (10-20) 12/09/18 13:02 BUN 9 mg/dL (7-17) 12/09/18 13:02 Creatinine 0.6 mg/dL (0.7-1.2) L 12/09/18 13:02 Est GFR ( Amer) > 60 12/09/18 13:02 Est GFR (Non-Af Amer) > 60 12/09/18 13:02 POC Glucose (mg/dL) 112 mg/dL (65-110) H 12/13/18 11:18 Random Glucose 84 mg/dL (65-105) 12/09/18 13:02 Calcium 9.4 mg/dl (8.6-10.4) 12/09/18 13:02 Total Bilirubin 0.5 mg/dL (0.2-1.3) 12/09/18 13:02 AST 40 U/L (14-36) H 12/09/18 13:02 ALT 23 U/L (9-52) 12/09/18 13:02 Alkaline Phosphatase 73 U/L (38-126) 12/09/18 13:02 Troponin I < 0.0120 ng/mL (0.00-0.120) 12/09/18 13:02 NT-Pro-B Natriuret Pep 131 pg/mL (0-900) 12/09/18 13:02 Total Protein 7.7 g/dL (6.3-8.3) 12/09/18 13:02 Albumin 4.6 g/dL (3.5-5.0) 12/09/18 13:02 Globulin 3.1 gm/dL (2.2-3.9) 12/09/18 13:02 Albumin/Globulin Ratio 1.5 (1.0-2.1) 12/09/18 13:02 - Hospital Course Hospital Course: Discomfort at the chest tube site. cxr-No pneumothorax. a/p: d/c home as per Primary team. [facility]clinic in one week for fu. Discharge Exam - Head Exam Head Exam: ATRAUMATIC, NORMAL INSPECTION, NORMOCEPHALIC Discharge Plan - Follow Up Plan Condition: STABLE Disposition: HOME/ ROUTINE Instructions: Heart Healthy Diet, Seizures, Adult (DC), Pneumothorax (Collapsed Lung) (DC), Shortness of Breath (Dyspnea) (DC) Additional Instructions: Patient cleared for discharge as per Dr Mehul Bedolla. Cleared by surgery as well. Please make an appointment to see Dr Easley on Wednesday, also please call to make an appointment for Dr Shi within one week. Keep dressing in place until you see Dr Shi. For pain you may take Motrin twice a day. You may shower but do not bathe. If symtoms reoccur or worsen please return to ED. Referrals: Juan Carlos Shi MD [Staff Provider] - Rocael Easley MD [Staff Provider] -
== END 2018-12-15 13:57 | disposition home or self-care (01) | DRG 201 ==
LOC: C.ER 12:17 → C.6T 15:21 → C.9E 15:33 → C.6T 15:54
PROVIDERS: ADMIT Internal Medicine Nephrology; ATTEND Internal Medicine Nephrology
PROC: 0W9930Z Drainage of Right Pleural Cavity with Drainage Device, Percutaneous Approach (ICD-10-PCS; principal; 2018-12-09)
DX: J93.83 Other pneumothorax (principal); M06.9 Rheumatoid arthritis, unspecified; G40.909 Epilepsy, unspecified, not intractable, without status epilepticus